=== PATIENT | female | born 1950 | race Caucasian/White ===

== ENCOUNTER 2018-05-31 08:55 | Outpatient (CLI) | payer MEDICARE, BC, SELFPAY ==
--- NOTE | 2018-05-31 08:39 | DI.RAD_ITS ---
SYMPTOM/DIAGNOSIS: EVALUATE LT KEVYN WITH INSTABILITY PELVIS AND LEFT HIP: A left hip prosthesis is noted. There are no prior comparison pelvis films. There is an abdomen film which shows the acetabular component. There is lucency around the screw in the acetabular component extending into the ilium. This appears unchanged when compared with the previous exam. There is no abnormal lucency around the femoral component. There is no fracture or dislocation. A right hip prosthesis is also noted which appears unremarkable.
== END 2018-05-31 09:15 ==
PROVIDERS: PCP Nurse Practitioner Family; Referring Provider Nurse Practitioner Family; Visit Provider Student in an Organized Health Care Education/Training Program
DX: Z96.642 Presence of left artificial hip joint (principal); M25.352 Other instability, left hip; M25.552 Pain in left hip
CPT/HCPCS: 99202; 99213; 73502

== ENCOUNTER 2018-07-06 00:20 | Outpatient (CLI) | payer MEDICARE, BC, SELFPAY ==
--- NOTE | 2018-07-06 14:47 | DI.DEXA_ITS ---
SYMPTOM/DIAGNOSIS: SCREENING FOR OSTEOPOROSIS IN POSTMENOPAUSAL WOMAN,Z78.0 DEXA SCAN: Routine examination. Evaluation of the lateral spine shows no compression deformities. There does appear to be a grade I spondylolisthesis of L 3 on L 4. Evaluation of the spine shows a total T score of -2.1 and a Z score of 0 consistent with osteopenia. The patient has bilateral total hip replacements. IMPRESSION: Osteopenia in the lumbar spine.
--- NOTE | 2018-07-06 15:22 | DI.MAMMO_ITS ---
SYMPTOM/DIAGNOSIS: SCREENING, Z12.31 MAMMOGRAMS: Mammograms were interpreted according to the usual protocol including computer analysis with CAD system, tomosynthesis and C view imaging. Comparison is made with prior examinations. Breast density, Category B. No suspicious masses or microcalcifications are seen. There is an asymmetric density in the outer left breast seen on the craniocaudad view. This area should be further evaluated with a spot compression view. Ultrasound may be indicated at that time. IMPRESSION: Additional views of the left breast as described above. Category 0. MQSA ASSESSMENT OF FINDINGS: Incomplete: Needs additional imaging evaluation. Category 0. Patient will receive a letter notifying them of these results. BI-RADS category B. There are scattered areas of fibroglandular density.
== END 2018-07-06 00:40 ==
PROVIDERS: PCP Nurse Practitioner Family; Visit Provider Nurse Practitioner Family
DX: Z12.31 Encounter for screening mammogram for malignant neoplasm of breast (principal); R92.8 Other abnormal and inconclusive findings on diagnostic imaging of breast; M85.88 Other specified disorders of bone density and structure, other site; Z78.0 Asymptomatic menopausal state
CPT/HCPCS: 77063; 77067; 77080

== ENCOUNTER 2018-08-13 01:05 | Outpatient (CLI) | payer MEDICARE, BC, SELFPAY ==
--- NOTE | 2018-08-13 09:33 | DI.MAMMO_ITS ---
SYMPTOM/DIAGNOSIS: F/U MAMMO, ASYMMETRIC DENSITY LT LEFT BREAST ADDITIONAL VIEW: Additional images are interpreted according to the usual protocol including tomosynthesis and 2D imaging. A CC spot compression view with tomography was performed of the lateral breast for questioned small area of asymmetric density. No suspicious abnormalities are seen. There has been no change from the previous exam. IMPRESSION: Category 1, negative mammogram. Yearly screening mammography is recommended. SA ASSESSMENT OF FINDINGS: Negative. Category 1. Patient will receive a letter notifying them of these results. BI-RADS category B. There are scattered areas of fibroglandular density.
== END 2018-08-13 01:25 ==
PROVIDERS: PCP Nurse Practitioner Family; Visit Provider Nurse Practitioner Family
DX: Z12.31 Encounter for screening mammogram for malignant neoplasm of breast (principal); R92.8 Other abnormal and inconclusive findings on diagnostic imaging of breast; N64.59 Other signs and symptoms in breast
CPT/HCPCS: 77061; 77065; G0279

== ENCOUNTER 2019-04-21 17:09 | Outpatient (REF) | payer MEDICARE, BC, SELFPAY ==
[2019-04-21 21:04] LABS: Absolute Basophil Count 0.04 k/cumm (0.0-0.2); Absolute Eosinophil Count 0.11 k/cumm (0.0-0.7); Absolute Lymphocyte Count 1.52 k/cumm (1.2-3.4); Absolute Monocyte Count 0.42 k/cumm (0.11-0.7); Absolute Neutrophil Count 1.99 k/cumm (1.2-6.7); Eosinophils % 2.7; HCT 40.1 % (36.0-46.0); HGB 13.2 g/dL (12.0-15.5); Lymphocytes % 37.3; Mean Corp. HGB Concentration 32.9 g/dL (32.0-36.0); Mean Corpuscular Hemoglobin 29.9 pg (27.0-33.0); Mean Corpuscular Volume 90.9 fL (80-95); Mean Platelet Volume 11.4 fL (8.0-11.0); Monocytes % 10.3; Neutrophils % 48.7; Platelet Count 277 x1000/uL (130-400); RBC 4.41 m/cumm (4.00-5.20); RBC Distribution Width 12.5 % (11.7-14.6); White Blood Cell Count 4.08 k/cumm (4.4-10.8)
[2019-04-21 21:19] LABS: Hemoglobin A1C 5.8 % (3.8-5.6)
[2019-04-21 21:26] LABS: Anion Gap 7.4 mmol/L (3-11); BUN 14 mg/dL (7-18); CO2 31.6 mmol/L (21.0-32.0); CREATININE 0.92 mg/dL (0.55-1.02); Calcium 9.3 mg/dL (8.5-10.1); Calculated LDL 270 mg/dL; Chloride 101 mmol/L (98-107); Cholesterol 376 mg/dL (<200); Glucose 92 mg/dL (74-106); HDL Cholesterol 83 mg/dL (40-60); Potassium 4.1 mmol/L (3.5-5.1); Sodium 140 mmol/L (136-145); Triglyceride 115 mg/dL (<150)
[2019-04-25 11:29] LABS: Hepatitis C Ab w Rflx HCV PCR Negative (Negative)
== END 2019-04-21 17:29 ==
LOC: NCHCN 17:09
PROVIDERS: PCP Nurse Practitioner Family; Visit Provider Nurse Practitioner Family
DX: E78.5 Hyperlipidemia, unspecified (principal); H02.409 Unspecified ptosis of unspecified eyelid; Z11.59 Encounter for screening for other viral diseases
CPT/HCPCS: 80048; 80061; 86803; 83036; 85025

== ENCOUNTER 2019-05-03 10:05 | Outpatient (REF) | payer MEDICARE, BC, SELFPAY ==
[2019-05-03 15:07] LABS: ALT 21 U/L (14-59); AST 27 U/L (15-37); Albumin 3.8 g/dL (3.4-5.0); Alkaline Phosphatase 58 U/L (46-116); Bilirubin, Total 0.3 mg/dL (0.2-1.0); Total Protein 6.8 g/dL (6.4-8.2)
== END 2019-05-03 10:25 ==
LOC: NCHCN 10:05
PROVIDERS: PCP Nurse Practitioner Family; Visit Provider Nurse Practitioner Family
DX: E78.5 Hyperlipidemia, unspecified (principal)
CPT/HCPCS: 80076

== ENCOUNTER 2019-07-18 09:12 | Outpatient (REF) | payer MEDICARE, BC, SELFPAY ==
[2019-07-18 20:54] LABS: ALT 25 U/L (14-59); AST 23 U/L (15-37); Albumin 3.9 g/dL (3.4-5.0); Alkaline Phosphatase 60 U/L (46-116); Anion Gap 5.7 mmol/L (3-11); BUN 19 mg/dL (7-18); Bilirubin, Total 0.6 mg/dL (0.2-1.0); CO2 32.3 mmol/L (21.0-32.0); CREATININE 0.99 mg/dL (0.55-1.02); Calcium 9.2 mg/dL (8.5-10.1); Calculated LDL 185 mg/dL (<100); Chloride 102 mmol/L (98-107); Cholesterol 277 mg/dL (<200); Estimated GFR 55.45 (mL/min/1.73m2); Glucose 73 mg/dL (74-106); HDL Cholesterol 82 mg/dL (40-60); Potassium 4.1 mmol/L (3.5-5.1); Sodium 140 mmol/L (136-145); Total Protein 7.4 g/dL (6.4-8.2); Triglyceride 54 mg/dL (<150)
== END 2019-07-18 09:32 ==
LOC: NCHCN 09:12
PROVIDERS: PCP Nurse Practitioner Family; Visit Provider Nurse Practitioner Family
DX: E78.5 Hyperlipidemia, unspecified (principal)
CPT/HCPCS: 80053; 80061

== ENCOUNTER 2019-11-18 11:13 | Outpatient (CLI) | payer MEDICARE, BC, SELFPAY ==
--- NOTE | 2019-11-18 11:00 | DI.RAD_ITS ---
EXAM: XR KNEE LT 2V AP,LAT CLINICAL HISTORY: L knee pain s/p TKA. TECHNIQUE: 2D digital imaging was performed. COMPARISON: No exams were available for comparison FINDINGS: BONES: No acute fracture is present. No bony destructive lesion is seen. JOINTS: There are mild degenerative changes of the lateral femoral tibial joint.. No joint effusion is seen. SOFT TISSUE: Normal. IMPRESSION: Mild degenerative changes. DATA REPOSITORY: RADIATION DOSE DELIVERED:
--- NOTE | 2019-11-18 11:00 | DI.RAD_ITS ---
EXAM: XR HIP LT AP LAT ONLY CLINICAL HISTORY: eval L hip pain and instability. TECHNIQUE: 2D digital imaging was performed. COMPARISON: CT ABD PELVIS WITH CONTRAST from 08/08/2014 CT ABD PELVIS WITH CONTRAST from 08/08/2014 CR XR hip LT complete AP pelvis from 05/31/2018 FINDINGS: BONES: No acute fracture is present. There is a left total hip prosthesis. The distal portion of th e femoral component is not included on the exam. A cystic area is again noted adjacent to the acetab ular component of the prosthesis which appears stable. JOINTS: No dislocation present. SOFT TISSUE: Normal. IMPRESSION: Stable appearance of the left hip prosthesis and surrounding bone. DATA REPOSITORY: RADIATION DOSE DELIVERED:
== END 2019-11-18 11:33 ==
PROVIDERS: PCP Nurse Practitioner Family; Referring Provider Nurse Practitioner Family; Visit Provider Student in an Organized Health Care Education/Training Program
DX: Z96.652 Presence of left artificial knee joint (principal); M17.12 Unilateral primary osteoarthritis, left knee; Z96.642 Presence of left artificial hip joint; M25.552 Pain in left hip; M23.92 Unspecified internal derangement of left knee
CPT/HCPCS: 99214; 73502; 73560

== ENCOUNTER 2019-12-07 01:13 | Outpatient (CLI) | payer MEDICARE, BC, SELFPAY ==
--- NOTE | 2019-12-07 07:15 | DI.MRI_ITS ---
EXAM: MR LOWER JOINT LT WO CLINICAL HISTORY: L KNEE PAIN-S/P TKA,Z96.652. TECHNIQUE: Multiplanar multisequence MRI was performed. COMPARISON: CR XR KNEE LT 2V AP,LAT from 11/18/2019 FINDINGS: There is a moderate-sized joint effusion. There is a moderate size popliteal cyst. Anterior cruciat e ligament appears thin but intact. The posterior cruciate ligament, medial collateral ligament and extensor mechanism appears intact. There is mild edema at the insertion of the IT band on the proxim al tibia. The lateral collateral ligament and hamstring tendons as well as popliteal tendon appear i ntact. Medial meniscus shows mild degenerative changes. There is some cartilage thinning and irregu larity over the medial femoral condyle. There is a tear of the lateral meniscus, with the posterior horn displaced or flipped laterally. The anterior horn appears intact. There is cartilage thinning extending down to bone involving the lateral femoral condyle and lateral tibial plateau. There is th inning of the cartilage at of the patellar apex and lateral patellar facet with some high signal in u nderlying bone. IMPRESSION: Large complex tear of the posterior horn and body of the lateral meniscus. DATA REPOSITORY:
== END 2019-12-07 01:33 ==
PROVIDERS: PCP Nurse Practitioner Family; Visit Provider Student in an Organized Health Care Education/Training Program
DX: Z96.652 Presence of left artificial knee joint (principal); S83.272A Complex tear of lateral meniscus, current injury, left knee, initial encounter
CPT/HCPCS: 73721

== ENCOUNTER 2019-12-23 08:09 | Outpatient (CLI) | payer MEDICARE, BC, SELFPAY ==
[2019-12-25 02:51] LABS: COVID-19 RT-PCR Result NEGATIVE (Negative)
== END 2019-12-23 08:29 ==
PROVIDERS: PCP Nurse Practitioner Family; Visit Provider Student in an Organized Health Care Education/Training Program
DX: M23.92 Unspecified internal derangement of left knee (principal)
CPT/HCPCS: U0003

== ENCOUNTER 2019-12-27 06:15 | Day surgery (SDC) | payer MEDICARE, BC, SELFPAY ==
[2019-12-27] VITALS (7 sets, daily range): BP systolic 68–138; BP diastolic 38–66; PULSE 53–60; RESP 12–18; TEMP 36–36.6; O2SAT 96–100
[2019-12-27] MEDS: Lactated Ringers 1,000 ML 80 ML IV (07:11)
--- NOTE | 2019-12-27 07:23 | W.PM.DSUDISC ---
Discharge Plan Disposition Patient Disposition: HOME Condition: Good Discharge Details Reason For Visit: Left Knee Arthroscopy Attending Provider: Mohit Lovell Primary Care Provider: Denise Alanis Home Meds and New Rx's Prescriptions: New hydrocodone-acetaminophen 5-325 mg tablet 1 tab PO Q6H PRN PRN (Reason: pain) Qty: 8 RF: 0 acetaminophen 500 mg tablet 500 mg PO Q6H PRN PRN (Reason: pain) Qty: 60 RF: 3 ibuprofen 600 mg tablet 600 mg PO TID PRNQty: 60 RF: 3 Continued pravastatin 10 mg tablet 10 mg PO DAILY RF: 0 Zyflamed 1 TAB tablet 1 tab PO DAILY RF: 0 ascorbic acid (vitamin C) [Vitamin C] 500 MG tablet 500 mg PO PRN RF: 0 Discharge Instructions Additional Instructions: - Just use ice packs instead of cryocuff. - Tylenol and Ibuprofen for baseline pain and Hydrocodone for breakthrough pain. Stand Alone Forms: [facility] Knee Arthroscopy Referrals: Mohit Lovell MD [ [facility] STAFF PHYSICIAN] - Equipment/Supplies: Partial Weight Bearing Crutches Activity:: Elevate Remove Dressings/Wound Care:: 72 hours Shower/Bathe:: 72 hours Diet:: As Tolerated Discharge Orders Discharge Orders: Discharge Order (Routine); Ordered 12/27/19 Ordered By: Mohit Lovell DS: Diagnosis Discharge Diagnosis (1) Tear of lateral meniscus of left knee: Status: Acute
[2019-12-27] MEDS: Bupivacaine 0.5% Pres-Free 30 ML VIAL (07:40)
[2019-12-27] MEDS: ceFAZolin 2 GM/50 ML BAG IVPB (07:45)
[2019-12-27] MEDS: ePHEDrine 50 MG/ML VIAL IVP (08:18)
[2019-12-27] MEDS: fentaNYL 100 MCG/2 ML VIAL IVP (08:35)
--- NOTE | 2019-12-28 06:24 | W.PM.OP ---
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 This was confirmed based on MRI and exam findings. Nonoperative measures were exhausted but disability and pain persisted. I discussed knee arthroscopy with meniscal intervention with the patient. I reviewed the risks of the procedure to include, but not limited to, bleeding, infection, pain, stiffness, damage to nerves or vessels, recurrence, blood clot. Despite these risks, the patient elected to proceed. Findings: A diagnostic arthroscopy was performed with the following findings: Suprapatellar Pouch: Mild inflammatory changes seen, No loose bodies Medial Compartment: No meniscal tear, Intact meniscal root, a focal area of grade II chondromalacia over the medial femur, No loose bodies Notch: ACL and PCL were intact Lateral Compartment: There is a complex tear of the lateral meniscus with a portion absent and extending into the periphery by the popliteus, Intact meniscal root, grade IV chondromalacia throughout the majority of the lateral tibia and a portion of the lateral femur, No loose bodies Patellofemoral Compartment: Grade I/II chondromalacia, No apparent patellar maltracking Procedure Description: Tracie was greeted in the preoperative holding area where the correct side was identified and marked. The consent was reviewed with the patient and signed. The history and physical was updated. All questions were answered. She was taken back to the operating room. The patient was placed into the supine position on the operating room table. A nonsterile tourniquet was placed high onto the leg but not used. All bony prominences were well padded. Prophylactic antibiotics in the form of Cefazolin were administered. The left leg was then prepped with Chloraprep and draped in a standard fashion with stockinette and extremity drape. A timeout to confirm correct identity, side and site, procedure, allergies, anesthesia, and medical concerns was performed. The leg was placed into a pneumatic leg adamson, SPIDER2. A standard lateral portal was made at the lateral border of the patella tendon in line with the inferior pole of the patella, soft spot. The skin and deep tissue was incised sharply and the blunt trochar was inserted atraumatically. A diagnostic arthroscopy was performed and the findings are listed above. The suprapatellar pouch had mild inflammatory changes. The patellofemoral articulation showed some minimal articular damage as well as good tracking. The lateral gutter had no loose bodies and the medial gutter had no loose bodies. The knee was brought into some valgus stress in extension to open the medial compartment. A medial portal was made, localized by a spinal needle. The portal was created with an #11 blade through skin and capsule under direct visualization avoiding any meniscal injury. A probe was then inserted into the medial compartment. The medial compartment was fully inspected. The chondral surface of the tibia showed no significant chondromalacia and the surface of the femur showed a focal area of grade II chondromalacia. The medial meniscus had no meniscal tear. The notch was then inspected which showed an intact ACL and an intact PCL. The leg was then brought into a figure of 4 position. The lateral compartment was fully inspected with the arthroscope and a probe. The chondral surface of the lateral femur showed some focal areas of grade IV chondromalacia as well as global grade II chondromalacia. The chondral surface of the lateral tibia showed significant chondromalacia throughout with exposed bone. The lateral meniscus had a complex tear extending from the root through the posterior body. There is seem to be a portion which was absent. There is also a portion of the posterior horn which was flipped between the popliteus and the posterior tibia. This was removed and resected. Any torn or loose edge of the meniscus were debrided down using a shaver. The arthroscope was brought back into the suprapatellar pouch and the leg was in full extension. The knee was thoroughly irrigated with the arthroscopic fluid on high flow and pressure. Inflow was stopped and excess fluid was removed. The wounds were closed with 4-0 Nylon. They were dressed with Xeroform, 4x4 gauze, ABD pad, Kerlix and an ILANA wrap. A cryo-cuff was applied. The patient tolerated the procedure well and was returned to the Same Day Surgery area in a stable condition suffering no known complication.
== END 2019-12-27 10:34 | disposition home or self-care (01) ==
PROVIDERS: PCP Nurse Practitioner Family; Visit Provider Student in an Organized Health Care Education/Training Program
PROC: (CPT 29870; principal; 2019-12-27 07:30)
DX: S83.272A Complex tear of lateral meniscus, current injury, left knee, initial encounter (principal); M94.262 Chondromalacia, left knee; X58.XXXA Exposure to other specified factors, initial encounter
CPT/HCPCS: 29881; J0690; J1100; J1885; J2001; J2405; J2704; J3010

== ENCOUNTER 2020-03-21 01:18 | Outpatient (CLI) | payer MEDICARE, BC, SELFPAY ==
--- NOTE | 2020-03-21 | DI.US_ITS ---
EXAM: US SOFT TISS ABD WALL/LOW BACK CLINICAL HISTORY: . TECHNIQUE: Ultrasound was performed using standard protocol. COMPARISON: CT ABD PELVIS WITH CONTRAST from 08/08/2014 FINDINGS: Sonographic assessment utilizing grayscale and color Doppler imaging was performed and targeted to th e area of clinical concern. There is a 1.3 x 0.9 x 1 cm hypoechoic ovoid area 9 cm above the umbilicus which appears to communica te with an anterior abdominal wall defect. The findings are suspicious for an anterior abdominal wal l hernia containing fat. There is no peristalsis of the material to suggest bowel. There is a small fat containing anterior abdominal wall hernia in the midline approximately 7 cm above the umbilicus on the CT examination from 08/08/2014. A CT scan of the abdomen should be considered for re-evaluatio n given the finding sonographically. IMPRESSION: DATA REPOSITORY:
== END 2020-03-21 01:38 ==
PROVIDERS: PCP Nurse Practitioner Family; Visit Provider Nurse Practitioner Family
DX: M79.89 Other specified soft tissue disorders (principal)
CPT/HCPCS: 76705

== ENCOUNTER → 2020-04-13 10:00 | Outpatient (BNVA) | payer MEDICARE, BC, SELFPAY | PROVIDERS: PCP Nurse Practitioner Family; Referring Provider Nurse Practitioner Family; Visit Provider Surgery | DX: K43.0 Incisional hernia with obstruction, without gangrene (principal) | CPT/HCPCS: 99203; 99214 ==

== ENCOUNTER 2020-04-27 01:49 | Outpatient (CLI) | payer MEDICARE, BC, SELFPAY ==
[2020-04-28 11:58] LABS: COVID-19 RT-PCR UVMMC Result Negative (Negative)
== END 2020-04-27 02:09 ==
PROVIDERS: PCP Nurse Practitioner Family; Visit Provider Surgery
DX: Z11.52 Encounter for screening for COVID-19 (principal); Z01.818 Encounter for other preprocedural examination
CPT/HCPCS: U0003

== ENCOUNTER 2020-05-02 08:24 | Day surgery (SDC) | payer MEDICARE, BC, SELFPAY ==
--- NOTE | 2020-05-02 07:13 | ROE_ITS ---
Date of service: 05/02/20 Time of Service: 12:13 Operative Note Operative Note DATE OF PROCEDURE: 05/02/20 PRE-OP DIAGNOSIS: Incisional Ventral Hernia POST-OP DIAGNOSIS: same PROCEDURE: Incisional ventral hernia repair with mesh SURGEON: Katrin Anthony SUPERINTENDENT [employer]ATING PLANT: Christina Luz ANESTHESIA: GETA and local PATHOLOGY: none sent COMPLICATIONS: None Patient was transported to: PACU Patient's condition: stable Implants: Ventralex ST Hernia Patch: [id number] LOT- [id number] 2021-09-24 Indications: Ms. De León is a very healthy 6-year-old female who is quite active and noticed a small bulge above her umbilicus a few years back. It really had not been bothering her until this past fall. She is here today to discuss repair. On exam she has a small incisional hernia at the site of her subxiphoid scar from her laparoscopic cholecystectomy. The hernia contains some fat which cannot be reduced. It is not tender on palpation at this time. No other defects are palpated above the umbilicus or at the umbilicus itself. We discussed incisional hernia repair with mesh. We also discussed Covid testing prior to the procedure as well as quarantine requirements. Risks, benefits and complications have been reviewed. Complications include but are not limited to bleeding, pain, infection, injury to underlying structures like bowel and adverse reaction to the medication. Questions were entertained and answered to their satisfaction and they wished to proceed. No guarantees were given or implied. COVID-19 testing explained to the patient. Reason for test reviewed. Quarantine per state requirements reviewed with patient. Patient understands and agrees to testing. We also discussed possible bilateral rectus block by anesthesia. If the hernia is too high for a rectus block so we will ask. If anesthesia does not feel like they can block this safely then I will inject Exparel at the end of the case to hopefully keep her comfortable so she can just take Tylenol and ibuprofen Procedure Description: After informed consent was obtained the patient was taken to the operating room and placed in a supine position. Monitors and SCDs were applied and a timeout was done. The patient's name, date of , procedure type, procedure site, allergies to medications, preoperative antibiotic, and DVT prophylaxis were all reviewed. Fire risk was assessed. The patient was placed under a deep MAC and a Bilateral rectus block was done by anesthesia. Please see their notes. Next the abdomen was prepped and draped in a sterile surgical fashion. 0.5% Bupivacaine was injected into the dermis over the palpable incisional hernia. An incision was made with a 15 blade. Dissection was done with cautery through the subcutaneous tissues down to the fascia. The hernia defect was identified and measured .5 cm . The fatty tissue was resected and the fascia was opened slightly so I could get my finger under the fascia to sweep for adhesions. The defect now measured 1 cm. A 1.7 inch round mesh was then placed under the fascia and secured in 4 quadrants with 2-0 proline. Once the mesh was secured the tissues were irrigated with some normal saline. No bleeding was identified. The fascia was closed over the mesh with 0 vicryl running suture. The subcutaneous tissue was re-approximated with interrupted 3-0 vicryl. The dermis was re-approximated with a running 4-0 Vicryl. The skin was cleaned and dried and skin affix was applied. The patient was woken up and taken back to recovery in stable condition. There were no immediate complications. Sponge, instrument and needle counts were correct at the end of the case x2.
--- NOTE | 2020-05-02 07:15 | PDOC.DSDIS_ITS ---
Discharge Plan Disposition Patient Disposition: HOME Condition: Good Discharge Details Reason For Visit: Incisional hernia Attending Provider: Katrin Anthony Primary Care Provider: Denise Alanis Home Meds and New Rx's Prescriptions: Continued atorvastatin 10 mg tablet 10 mg PO DAILY RF: 0 Zyflamed 1 TAB tablet 2 tab PO DAILY RF: 0 ascorbic acid (vitamin C) [Vitamin C] 500 MG tablet 500 mg PO PRN RF: 0 multivitamin Tablet 1 tab PO DAILY RF: 0 Brandon-E 400 mg Tablet 400 mg PO DAILY RF: 0 PreserVision AREDS-2 [id number] [id number] Capsule 2 tab PO DAILY RF: 0 ibuprofen 600 mg tablet 600 mg PO TID PRNQty: 60 RF: 3 Discharge Instructions Additional Instructions: Activity at Home after surgery: 1. Make sure you walk outside at least 4 times per day 2. You should be able to climb a flight of stairs 3. No driving while in pain or taking pain medications 4. No strenuous activity or heavy lifting for 4 weeks (open surgery) Diet, Nutrition, & wound healin. Avoid alcohol until after you are recovered from your surgery 2. Make sure to eat plenty of lean protein (meat, fish, eggs, cottage cheese, beans) 3. Eat a variety of fruits and vegetables. Eat plenty of high fiber foods to avoid constipation. 4. Drink plenty of liquids to stay hydrated and avoid constipation Pain Medications: 1. Tylenol 650 mg every 6 hours as needed and Ibuprofen 600 mg every 6 hours as needed. May alternate between the 2 medications every 3 hours 2. If a narcotic has been prescribed take as directed only for breakthrough pain For Constipation: 1. Take Milk of Magnesia or MiraLax as needed for constipation Other: 1. You may shower daily. Do not scrub the incisions 2. Do not soak the incisions for 1 week 3. You may alternate ice and heat as needed for pain and swelling Wound Care: 1. Keep the incisions clean and dry Please call our office if you develop: 1. Fevers >101.5 2. Nausea or Vomiting 3. Worsening pain 4. Redness and thick discharge from the wounds If after hours please call the Hospital at and ask to speak to the on-call surgeon Referrals: Katrin Anthony MD [ [facility] STAFF PHYSICIAN] - 05/18/20 9:00 am Activity:: No lifting >20 lb x 4 weeks Remove Dressings/Wound Care:: Do Not Remove Shower/Bathe:: 24 hours Diet:: As Tolerated Discharge Orders Discharge Orders: Discharge Order (Routine); Ordered 05/02/20 Ordered By: Katrin Anthony
[2020-05-02 08:33] VITALS: BP 130/66; PULSE 55; RESP 14; TEMP 36; O2SAT 98
[2020-05-02] MEDS: Lactated Ringers 1,000 ML 80 ML IV (09:20)
[2020-05-02] MEDS: Acetaminophen 500 MG TAB ×2 (09:43→09:44)
[2020-05-02] MEDS: Celecoxib 200 MG CAP (09:45)
[2020-05-02] MEDS: Bupivacaine 0.25% Pres-Free 30 ML VIAL (11:07)
[2020-05-02] MEDS: ceFAZolin 1 GM/50 ML BAG IVPB (11:25)
[2020-05-02] MEDS: Lidocaine 2% Multi-Dose 50 ML VIAL (11:36)
[2020-05-02 12:09] VITALS: BP 116/55; PULSE 60; RESP 22; TEMP 36; O2SAT 100
[2020-05-02 12:14] VITALS: BP 126/60; PULSE 59; RESP 11; TEMP 36; O2SAT 100
[2020-05-02 12:19] VITALS: BP 130/68; PULSE 58; RESP 15; TEMP 36; O2SAT 100
[2020-05-02 12:35] VITALS: BP 141/64; PULSE 55; RESP 12; TEMP 36; O2SAT 100
[2020-05-02 13:19] VITALS: BP 126/79; PULSE 45; RESP 15; TEMP 35.9; O2SAT 100
== END 2020-05-02 14:09 | disposition home or self-care (01) ==
LOC: SUR 08:25
PROVIDERS: PCP Nurse Practitioner Family; Visit Provider Surgery
PROC: (CPT 49560; principal; 2020-05-02 10:45)
DX: K43.2 Incisional hernia without obstruction or gangrene (principal); G89.18 Other acute postprocedural pain
CPT/HCPCS: 49560; 49568; 76942; C1781; J0131; J0690; J1100; J1885; J2001

== ENCOUNTER → 2020-05-18 09:09 | Outpatient (BNVA) | payer MEDICARE, BC, SELFPAY | PROVIDERS: PCP Nurse Practitioner Family; Referring Provider Nurse Practitioner Family; Visit Provider Surgery | DX: Z48.815 Encounter for surgical aftercare following surgery on the digestive system (principal) ==

== ENCOUNTER → 2020-06-11 09:46 | Outpatient (BNVA) | payer MEDICARE, BC, SELFPAY | PROVIDERS: PCP Nurse Practitioner Family; Referring Provider Nurse Practitioner Family; Visit Provider Nurse Practitioner Adult Health | DX: G56.01 Carpal tunnel syndrome, right upper limb (principal) | CPT/HCPCS: 99203; 99213 ==

== ENCOUNTER → 2020-08-23 13:28 | Outpatient (BNVA) | payer MEDICARE, BC, SELFPAY | PROVIDERS: PCP Nurse Practitioner Family; Referring Provider Nurse Practitioner Family; Visit Provider Student in an Organized Health Care Education/Training Program | DX: T84.84XA Pain due to internal orthopedic prosthetic devices, implants and grafts, initial encounter (principal); Z96.642 Presence of left artificial hip joint | CPT/HCPCS: 99442 ==

== ENCOUNTER 2020-08-24 13:23 | Outpatient (REF) | payer MEDICARE, BC, SELFPAY ==
[2020-08-24 14:03] LABS: Hemoglobin A1C 5.7 % (<5.7)
[2020-08-24 14:06] LABS: ALT 29 U/L (14-59); AST 24 U/L (15-37); Albumin 4.1 g/dL (3.4-5.0); Alkaline Phosphatase 64 U/L (46-116); BUN 18 mg/dL (7-18); Bilirubin, Total 0.5 mg/dL (0.2-1.0); CREATININE 0.9 mg/dL (0.55-1.02); Calculated LDL 138 mg/dL (<100); Chloride 106 mmol/L (98-107); Cholesterol 232 mg/dL (<200); Glucose 61 mg/dL (74-106); HDL Cholesterol 82 mg/dL (40-60); Potassium 4.4 mmol/L (3.5-5.1); Sodium 144 mmol/L (136-145); Total Protein 7.6 g/dL (6.4-8.2); Triglyceride 63 mg/dL (<150)
[2020-08-24 14:26] LABS: Calcium 9.3 mg/dL (8.5-10.1)
== END 2020-08-24 13:24 | disposition home or self-care (01) ==
LOC: NCHCN 13:23
PROVIDERS: PCP Nurse Practitioner Family; Visit Provider Nurse Practitioner Family
DX: R73.03 Prediabetes (principal); E78.5 Hyperlipidemia, unspecified; M85.88 Other specified disorders of bone density and structure, other site; Z87.891 Personal history of nicotine dependence
CPT/HCPCS: 80053; 80061; 83036

== ENCOUNTER 2020-09-05 01:20 | Outpatient (CLI) | payer MEDICARE, BC, SELFPAY ==
--- NOTE | 2020-09-05 07:00 | DI.NM_ITS ---
Exam(s) NM BONE SCAN 3 PHASE EXAM: NM BONE SCAN 3 PHASE CLINICAL HISTORY: PAINFUL L HIP, S/P THR. TECHNIQUE: Injected Dose: 24 mCi Tc-99m MDP COMPARISON: CR XR HIP LT AP LAT ONLY from 11/18/[address] LOWER EXTREMITY LT WO from 09/05/2020 FINDINGS: Perfusion: Symmetric. Blood Pool: Symmetric. Delayed: No focal area of intense suspicious uptake is seen. Photopenic areas are seen in the hips bi laterally consistent with the patient's known bilateral total hip replacements. There is normal acti vity seen in the kidneys and urinary bladder. Increased uptake is seen in the shoulders bilaterally likely reflecting degenerative changes. There is also a focus of increased radiotracer uptake at the 1st MTP joint of the right foot. There is less prominent but slightly increased radiotracer uptake in the left 1st MTP joint. These likely reflect degenerative changes. IMPRESSION: 1. No abnormal uptake seen in the region of the left hip prosthesis to suggest infection or loosening . DATA REPOSITORY:
--- NOTE | 2020-09-05 08:16 | DI.CT_ITS ---
Exam(s) CT LOWER EXTREMITY LT WO EXAM: CT LOWER EXTREMITY LT WO CLINICAL HISTORY: PAINFUL L HIP, S/P THR. TECHNIQUE: Imaging Protocol: Axial computed tomography images with coronal and sagittal reformatted images were created and reviewed. COMPARISON: CR XR HIP LT AP LAT ONLY from 11/18/2019 FINDINGS: Bones: The osseous structures and articular surfaces are intact. Bony alignment is satisfactory. N o cellulitic or osteomyelitic changes are identified. The patient has a left total hip replacement. This causes artifact. The distal aspects of the 2 screws project into the soft tissues lateral to t he left acetabulum. No lucencies are seen in or around the orthopedic hardware. No lytic or sclerot ic lesions are identified. Soft Tissues: Normal. IMPRESSION: 1. Status post left total hip replacement. 2. There are 2 screws associated with the acetabular component of the prosthesis. The distal aspects of the screws are not within bone and project into the soft tissues lateral to the acetabulum. 3. No acute fracture or dislocation. RADIATION DOSE DELIVERED: 275.82mGy.cm Total DLP 275.82mGy.cm Total DLP DATA REPOSITORY: All CT scans at this facility are submitted to the National Radiology Data Registry (NRDR) Dose Index Registry (DIR) with the [employer] ([employer]). RADIATION OPTIMIZATION: All CT scans at this facility use at least one of these dose optimization te chniques: automated exposure control; mA and/or kV adjustment per patient size (includes targeted exa ms where dose is matched to clinical indication); or iterative reconstruction.
== END 2020-09-05 01:40 ==
PROVIDERS: PCP Nurse Practitioner Family; Visit Provider Student in an Organized Health Care Education/Training Program
DX: T84.84XA Pain due to internal orthopedic prosthetic devices, implants and grafts, initial encounter (principal); Z96.642 Presence of left artificial hip joint
CPT/HCPCS: 73700; 78315

== ENCOUNTER → 2020-10-04 13:01 | Outpatient (BNVA) | payer MEDICARE, BC, SELFPAY | PROVIDERS: PCP Nurse Practitioner Family; Referring Provider Nurse Practitioner Family; Visit Provider Physician Assistant Surgical | DX: Z01.818 Encounter for other preprocedural examination (principal); T84.84XA Pain due to internal orthopedic prosthetic devices, implants and grafts, initial encounter; Z96.642 Presence of left artificial hip joint ==

== ENCOUNTER 2020-10-08 03:00 | Outpatient (CLI) | payer MEDICARE, BC, SELFPAY ==
[2020-10-08 12:26] LABS: Source Nasal/Nares
[2020-10-08 16:02] LABS: COVID-19 PCR Negative (Negative)
== END 2020-10-08 03:01 | disposition home or self-care (01) ==
PROVIDERS: PCP Nurse Practitioner Family; Visit Provider Student in an Organized Health Care Education/Training Program
DX: Z20.822 Contact with and (suspected) exposure to COVID-19 (principal); Z01.818 Encounter for other preprocedural examination
CPT/HCPCS: 87635

== ENCOUNTER 2020-10-08 03:23 | Outpatient (CLI) | payer MEDICARE, BC, SELFPAY ==
[2020-10-08 10:18] LABS: HCT 38.2 % (36.0-46.0); HGB 12.4 g/dL (11.2-15.7); MCH 29.7 pg (27.0-33.0); MCHC 32.5 % (32.0-36.0); MCV 91.6 fL (80-95); MPV 9.4 fL (8.0-11.0); Platelet Count 241 10^3/uL (130-400); RBC 4.17 10^6/uL (3.93-5.22); RDW 12.4 % (11.7-14.6); RDW-SD 41.1 fL; WBC 4.79 10^3/uL (4.4-10.8)
[2020-10-08 12:10] LABS: Anion Gap 9.4 mmol/L (3-11); BUN 18 mg/dL (7-18); CO2 31.6 mmol/L (21.0-32.0); Calcium 9.3 mg/dL (8.5-10.1); Chloride 100 mmol/L (98-107); Estimated GFR 54.66 (mL/min/1.73m2); Glucose 77 mg/dL (74-106); Potassium 4.4 mmol/L (3.5-5.1); Sodium 141 mmol/L (136-145)
== END 2020-10-08 03:24 | disposition home or self-care (01) ==
LOC: LBO 03:24
PROVIDERS: PCP Nurse Practitioner Family; Visit Provider Student in an Organized Health Care Education/Training Program
DX: T84.84XA Pain due to internal orthopedic prosthetic devices, implants and grafts, initial encounter (principal); Z96.642 Presence of left artificial hip joint; Z01.818 Encounter for other preprocedural examination; Z01.812 Encounter for preprocedural laboratory examination
CPT/HCPCS: 36415; 80048; 85027; 87635

== ENCOUNTER 2020-10-09 07:47 | Day surgery (SDC) | payer MEDICARE, BC, SELFPAY ==
[2020-10-09] VITALS (8 sets, daily range): BP systolic 107–127; BP diastolic 65–79; PULSE 54–62; RESP 12–19; TEMP 36.1–36.4; O2SAT 95–99; BMI 20.1
--- NOTE | 2020-10-09 06:49 | ANES.PREOP_ITS ---
General Info Date of Service Date Performed: 10/09/20 Height: 5 ft 5.5 in Weight: 55.792 kg Body Mass Index (BMI): 20.1 Surgical Procedure: Operation Date: 10/09/20 09:55 Proposed Procedures Side Surgeon p lt hip head/liner exchange Left Mohit Lovell MD Meds Allergies and Home Medications Allergies Allergy/AdvReac Type Severity Reaction Status Date / Time No Known Allergies Allergy Unverified 10/05/20 14:12 Home Medication Medication Instructions Recorded Zyflamed 2 tab PO DAILY 07/15/13 ascorbic acid (vitamin C) [Vitamin 500 mg PO PRN 07/15/13 C] atorvastatin 10 mg tablet 10 mg PO DAILY 02/22/20 multivitamin 1 tab PO DAILY 04/30/20 PreserVision AREDS-2 2 tab PO DAILY 05/02/20 Brandon-E 400 mg PO DAILY 05/02/20 acetaminophen [Tylenol Extra 500 mg PO Q6H PRN #90 tab 10/09/20 Strength] aspirin 81 mg PO BID #60 tab 10/09/20 celecoxib [Celebrex] 200 mg PO BID #60 cap 10/09/20 oxycodone 5 mg PO Q4H PRN #18 tab 10/09/20 pantoprazole [Protonix] 40 mg PO DAILY #30 tab 10/09/20 Current Visit Medications: Current Medications Generic Name Dose Route Start Last Admin Trade Name Freq PRN Reason Stop Dose Admin Acetaminophen 1,000 mg 10/09/20 06:00 Acetaminophen 500 Mg Tab PO 10/09/20 16:00 PREOP FRAN Celecoxib 400 mg 10/09/20 06:00 Celecoxib 200 Mg Cap PO 10/09/20 16:00 PREOP FRAN Tranexamic Acid 1,000 mg/ 60 mls @ 360 mls/hr 10/09/20 06:00 Sodium Chloride IV 10/09/20 16:00 PREOP FRAN Ringer's Solution 1,000 mls @ 80 mls/hr 10/09/20 06:00 IV 11/07/20 23:59 INFUSION FRAN Cefazolin Sodium/Dextrose 2 gm in 50 mls @ 100 mls/hr 10/09/20 06:00 Ancef Duplex IVPB 10/09/20 16:00 PREOP FRAN IV Miscellaneous Supplies 1 each 10/09/20 06:00 Iv Access IV 11/07/20 23:59 DIRECTED FRAN Sodium Chloride 0 ml 10/09/20 06:00 Normal Saline Flush 10 Ml Syr IV 11/07/20 23:59 PRN PRN Sodium Chloride 0 ml 10/09/20 06:00 Normal Saline 10 Ml Vial IJ 11/07/20 23:59 DIRECTED PRN Sterile Water 0 ml 10/09/20 06:00 Water,Injection,Sterile 10 Ml Vial IJ 11/07/20 23:59 DIRECTED PRN PFSH Active Problems Active Problems: Problem Status Onset Code Pain in hip region after hip replacement M25.559, Z96.649 Pain due to left hip joint prosthesis T84.84XA, Z96.642 Right carpal tunnel syndrome G56.01 Tear of lateral meniscus of left knee S83.282A Hyperlipidemia E78.5 Medical History Medical History Anxiety with depression pt. denies this Arthritis Former smoker Headache Hernia History of prediabetes Hyperlipidemia Left hip pain Osteopenia Overflow incontinence pt. denies this Pain in right hand Paresthesia of both hands Prediabetes Ptosis Rash Retinal hemorrhage Right carpal tunnel syndrome Small bowel obstruction (08/08/14) pt. denies this Soft tissue mass Tinnitus Ventral hernia Surgical History Surgical History H/O tooth extraction History of cholecystectomy History of left hip replacement History of total replacement of right hip History of umbilical hernia repair Hx of colonoscopy S/P lateral meniscus repair of left knee Status post left hip replacement DOS: 06/29/2000 Dr. Heck at [facility] [place] Tear of lateral meniscus of left knee Status post left knee arthroscopy with partial lateral meniscectomy: 12/27/2019 Tobacco Smoking/Tobacco Use Status: Former Tobacco Use Alcohol Alcohol Intake: never Substance Use Substance use: Never Substance use type: does not use Details: per pt intermittently smoked over years with periods of 4 - 10 years of not smoking. Has not smoked since 03/30/2019 Vital Signs and Lab Results Vital Signs Most Recent Vital Signs in EMR: Temp Pulse Resp BP Pulse Ox 36.4 C L 54 L 16 122/65 97 10/09/20 07:56 10/09/20 07:56 10/09/20 07:56 10/09/20 07:56 10/09/20 07:56 Lab Results Blood Type / Crossmatch: No Data to Display Complete Blood Count: White Blood Count 4.79 10^3/uL (4.4-10.8) 10/08/20 10:08 10/08/20 Red Blood Count 4.17 10^6/uL (3.93-5.22) 10/08/20 10:08 10/08/20 Hemoglobin 12.4 g/dL (11.2-15.7) 10/08/20 10:08 10/08/20 Hematocrit 38.2 % (36.0-46.0) 10/08/20 10:08 10/08/20 Platelet Count 241 10^3/uL (130-400) 10/08/20 10:08 10/08/20 Complete Metabolic Panel: Sodium Level 141 mmol/L (136-145) 10/08/20 10:08 10/08/20 Potassium Level 4.4 mmol/L (3.5-5.1) 10/08/20 10:08 10/08/20 Chloride Level 100 mmol/L (98-107) 10/08/20 10:08 10/08/20 Carbon Dioxide Level 31.6 mmol/L (21.0-32.0) 10/08/20 10:08 10/08/20 Blood Urea Nitrogen 18 mg/dL (7-18) 10/08/20 10:08 10/08/20 Creatinine 1.0 mg/dL (0.55-1.02) 10/08/20 10:08 10/08/20 Estimated GFR/1.73 m2 54.66 (mL/min/1.73m2) 10/08/20 10:08 10/08/20 Calcium Level 9.3 mg/dL (8.5-10.1) 10/08/20 10:08 10/08/20 Glucose Level 77 mg/dL (74-106) 10/08/20 10:08 10/08/20 Liver Function Panel: No Data to Display Coagulation Panel: No Data to Display Cardiac Panel: No Data to Display Arterial Blood Gas: No Data to Display Venous Blood Gas: No Data to Display Pancreas Panel: No Data to Display Thyroid Panel: No Data to Display Infectious Disease: Coronavirus (COVID-19)(PCR) Negative (Negative) 10/08/20 10:20 10/08/20 Coronavirus 2019 Source Nasal/Nares 10/08/20 10:20 10/08/20 Blood Cultures: No Data to Display Toxicology Panel: No Data to Display Anesthesia Assessment and Plan Anesthesia History Personal History: No History of Anesthesia Complications Family History: No Family History of Anesthesia Complications Exercise Tolerance Exercise Tolerance: Metabolic Equivalents>4 Cardiac & Pulmonary Exam Cardiac Exam: Normal S1/S2 Heart Sounds Pulmonary Exam: Clear Bilateral Breath Sounds Airway Exam Known Difficult Airway: No Mallampati Class: 1 Mouth Opening: Normal (> 3cm) Thyromental Distance: Greater than 3 cm Neck Range of Motion: Full ROM Neck Circumference: Normal Teeth Condition: Normal Dentition ASA Classification ASA Score: ASA 2 Emergency Case?: No NPO Status NPO Status: NPO Clears >2 hours, Solids >8 hours Anesthesia Plan Resuscitation Status: Full Code Anesthesia Technique: Spinal Anesthesia Airway Planned: Natural Airway Monitors Used: Standard Monitors Preoperative Comments:: 70 yo for left hip revision s/p left hip arthroplasty 2000. Previous LMA 4 supreme (3 failed to seat), easy mask. discussed with [place] - chloro spinal ok.
--- NOTE | 2020-10-09 07:31 | PDOC.DSDIS_ITS ---
Documented by User: MARVA León 10/09/20 07:34 Discharge Plan Disposition Patient Disposition: HOME Condition: Stable Discharge Details Reason For Visit: Left KEVYN Revision Attending Provider: Mohit Lovell Primary Care Provider: Denise Alanis Home Meds and New Rx's Prescriptions: Continued atorvastatin 10 mg tablet 10 mg PO DAILY RF: 0 Zyflamed 1 TAB tablet 2 tab PO DAILY RF: 0 ascorbic acid (vitamin C) [Vitamin C] 500 MG tablet 500 mg PO PRN RF: 0 multivitamin Tablet 1 tab PO DAILY RF: 0 Brandon-E 400 mg Tablet 400 mg PO DAILY RF: 0 PreserVision AREDS-2 [id number] er-yomc-uk-mg Capsule 2 tab PO DAILY RF: 0 Discontinued ibuprofen 600 mg tablet 600 mg PO TID PRNQty: 60 RF: 3 No Action acetaminophen [Tylenol Extra Strength] 500 mg tablet 500 mg PO Q6H PRN (Reason: pain) Qty: 90 RF: 0 aspirin 81 mg tablet,delayed release (DR/EC) 81 mg PO BID Qty: 60 RF: 0 celecoxib [Celebrex] 200 mg capsule 200 mg PO BID Qty: 60 RF: 0 oxycodone 5 mg tablet 5 mg PO Q4H MDD 30mg PRN (Reason: pain) Qty: 18 RF: 0 pantoprazole [Protonix] 40 mg tablet,delayed release (DR/EC) 40 mg PO DAILY Qty: 30 RF: 0 Discharge Instructions Additional Instructions: Total Hip Discharge Instructions Activity: The most important activity is to walk. You should try to take short walks a few times a day. You have no restrictions on movement or positioning, but do not try to force what you do. You will find some stiffness and weakness with hip flexion (lifting your knee). Do not try to strengthen this too early, continue to practice walking and stairs and this will come. - Outpatient physical therapy can be helpful to help return you to a normal gait and improve your flexibility and strength. This can start around 2 weeks. For some patients, it?s not necessary. Usually this is determined at the time of discharge or at the first post-operative visit. - You should wear the MIK hose on both legs for 2 weeks. Dressing: Keep the surgical dressing in place for at least one week. After the first week it may be removed and replace with light gauze and tape or nothing. It may get wet after 3 days but avoid soaking the dressing. If it gets wet, just lightly pat dry. It is important to always keep some gauze between skin folds, especially when you are sitting. Spend some time with the wound exposed when you are lying flat as the incision does wrinkle onto itself. Medications: - You should take Tylenol and an anti-inflammatory Celebrex as your primary pain control medications. If the Celebrex is too expensive or not covered, please call the office for another alternative (Advil/Ibuprofen or Naproxen/Aleve). - You have been prescribed a stronger pain medication Oxycodone for breakthrough pain, take as needed as prescribed. - You have also been prescribed a stomach acid reduction agent Pantoprozole to help reduce stomach acid and reflux. - You will be taking Aspirin 81mg twice a day for DVT prevention unless instructed otherwise. - If you have constipation you should take Colace or Miralax (both [id number]). It takes most people 3-4 days to have a bowel movement. Follow-up: 2 weeks If you have any acute concerns or questions, please do not hesitate to contact the office at [phone]. You may contact Dr. Lovell with any questions after hours through the hospital at [phone] or on his cell phone at [phone]. Stand Alone Forms: Anesthesia Discharge Inst. Referrals: Mohit Lovell MD [ [facility] STAFF PHYSICIAN] - Equipment/Supplies: Walker Activity:: Activity as Tolerated Remove Dressings/Wound Care:: Do Not Remove Shower/Bathe:: 72 hours Diet:: As Tolerated Discharge Orders Discharge Orders: Discharge Order (Routine); Ordered 10/09/20 Ordered By: Nelsy Strickland DS: Diagnosis Discharge Diagnosis (1) Pain due to left hip joint prosthesis: Status: Acute Documented by User: Mohit Lovell MD 10/09/20 15:17 Discharge Plan Disposition Patient Disposition: HOME Condition: Stable Discharge Details Reason For Visit: Left KEVYN Revision Attending Provider: Mohit Lovell Primary Care Provider: Denise Alanis Home Meds and New Rx's Prescriptions: Continued atorvastatin 10 mg tablet 10 mg PO DAILY RF: 0 Zyflamed 1 TAB tablet 2 tab PO DAILY RF: 0 ascorbic acid (vitamin C) [Vitamin C] 500 MG tablet 500 mg PO PRN RF: 0 multivitamin Tablet 1 tab PO DAILY RF: 0 Brandon-E 400 mg Tablet 400 mg PO DAILY RF: 0 PreserVision AREDS-2 [id number] ov-ldsp-jw-mg Capsule 2 tab PO DAILY RF: 0 Discontinued ibuprofen 600 mg tablet 600 mg PO TID PRNQty: 60 RF: 3 No Action acetaminophen [Tylenol Extra Strength] 500 mg tablet 500 mg PO Q6H PRN (Reason: pain) Qty: 90 RF: 0 aspirin 81 mg tablet,delayed release (DR/EC) 81 mg PO BID Qty: 60 RF: 0 celecoxib [Celebrex] 200 mg capsule 200 mg PO BID Qty: 60 RF: 0 oxycodone 5 mg tablet 5 mg PO Q4H MDD 30mg PRN (Reason: pain) Qty: 18 RF: 0 pantoprazole [Protonix] 40 mg tablet,delayed release (DR/EC) 40 mg PO DAILY Qty: 30 RF: 0 Discharge Instructions Additional Instructions: Total Hip Discharge Instructions Activity: The most important activity is to walk. You should try to take short walks a few times a day. You have no restrictions on movement or positioning, but do not try to force what you do. You will find some stiffness and weakness with hip flexion (lifting your knee). Do not try to strengthen this too early, continue to practice walking and stairs and this will come. - Outpatient physical therapy can be helpful to help return you to a normal gait and improve your flexibility and strength. This can start around 2 weeks. For some patients, it?s not necessary. Usually this is determined at the time of discharge or at the first post-operative visit. - You should wear the MIK hose on both legs for 2 weeks. Dressing: Keep the surgical dressing in place for at least one week. After the first week it may be removed and replace with light gauze and tape or nothing. It may get wet after 3 days but avoid soaking the dressing. If it gets wet, just lightly pat dry. It is important to always keep some gauze between skin folds, especially when you are sitting. Spend some time with the wound exposed when you are lying flat as the incision does wrinkle onto itself. Medications: - You should take Tylenol and an anti-inflammatory Celebrex as your primary pain control medications. If the Celebrex is too expensive or not covered, please call the office for another alternative (Advil/Ibuprofen or Naproxen/Aleve). - You have been prescribed a stronger pain medication Oxycodone for breakthrough pain, take as needed as prescribed. - You have also been prescribed a stomach acid reduction agent Pantoprozole to help reduce stomach acid and reflux. - You will be taking Aspirin 81mg twice a day for DVT prevention unless instructed otherwise. - If you have constipation you should take Colace or Miralax (both [id number]). It takes most people 3-4 days to have a bowel movement. Follow-up: 2 weeks If you have any acute concerns or questions, please do not hesitate to contact the office at [phone]. You may contact Dr. Lovell with any questions after hours through the hospital at [phone] or on his cell phone at [phone]. Stand Alone Forms: Anesthesia Discharge Inst. Referrals: Mohit Lovell MD [ [facility] STAFF PHYSICIAN] - Equipment/Supplies: Walker Activity:: Activity as Tolerated Remove Dressings/Wound Care:: Do Not Remove Shower/Bathe:: 72 hours Diet:: As Tolerated Discharge Orders Discharge Orders: Discharge Order (Routine); Ordered 10/09/20 Ordered By: Nelsy Strickland
[2020-10-09] MEDS: Acetaminophen 500 MG TAB 1000 MG PO (08:43)
[2020-10-09] MEDS: Lactated Ringers 1,000 ML 80 ML IV (08:43)
[2020-10-09] MEDS: Celecoxib 200 MG CAP 400 MG PO (08:44)
[2020-10-09] MEDS: ceFAZolin 2 GM/50 ML BAG IVPB (09:50)
[2020-10-09] MEDS: Tranexamic Acid 1,000 MG/10 ML VIAL 1000 MG (10:04)
[2020-10-09] MEDS: Normal Saline 20 ML VIAL (10:21)
[2020-10-09] MEDS: Bupivacaine 0.25% Pres-Free 30 ML VIAL (10:21)
[2020-10-09] MEDS: Ketorolac 30 MG/ML VIAL (10:21)
--- NOTE | 2020-10-09 11:50 | DI.RAD_ITS ---
Exam(s) XR HIP LT IN OR EXAM: XR HIP LT IN OR CLINICAL HISTORY: PAINFUL LEFT HIP PROSTHESIS. TECHNIQUE: 2D digital imaging was performed. COMPARISON: No exams were available for comparison FINDINGS: Fluoroscopy provided intraoperatively. Radiologist not present. No images supplied. Total fluoroscopy time 50.8 seconds Cumulative dose 4.7mGy IMPRESSION: DATA REPOSITORY: RADIATION DOSE DELIVERED:
[2020-10-09] MEDS: HYDROmorphone 2 MG/ML VIAL IVP (12:15)
[2020-10-09] MEDS: Normal Saline Flush 10 ML SYR IV (12:20)
--- NOTE | 2020-10-09 12:48 | W.ANESPOSTOP ---
Postoperative Evaluation Date, Time and Location Date Performed: 10/09/20 Time Performed: 12:49 Patient Location: PACU Vital Signs Most Recent Imported Vital Signs: Most Recent Vital Signs Temp Pulse Resp BP Pulse Ox 36.2 C L 60 19 127/67 98 10/09/20 12:45 10/09/20 12:45 10/09/20 12:45 10/09/20 12:45 10/09/20 12:45 Pain Score Most Recent Pain Score: Most Recent Pain Score Pain Level 5 10/09/20 12:45 Assessment Mental Status: Awake (Alert & Oriented to Patient Baseline) Airway and Respiratory Function: Patent airway with normal (patient baseline) respiratory exam Cardiovascular Function: Hemodynamically Stable Hydration Status: Adequately Hydrated Nausea & Vomiting: No Nausea or Vomiting Pain: Pain is tolerable per patient Peripheral Nerve Block: Patient did not receive a nerve block
[2020-10-09] MEDS: oxyCODONE 5 MG TAB PO (13:14)
--- NOTE | 2020-10-09 14:30 | IN_ITS ---
Date of service: 10/09/20 Time of Service: 14:30 PT Notes Visit Reasons: Left KEVYN Revision Physical Therapy Day Surgery Initial Evaluation Date: 10/09/2020 Referring Doctor: MARVA León PT Orders: PT CONSULT: S/P Ortho Surgery Precautions: WBAT on L LE with AD. Patient Profile/Admitting Diagnosis: Tracie is a 70-year-old female status post left total hip arthroplasty revision on postoperative day 0. PMHX: Medical History Anxiety with depression Arthritis Former smoker Headache Hernia History of prediabetes Hyperlipidemia Left hip pain Osteopenia Overflow incontinence pt. denies this Pain in right hand Paresthesia of both hands Prediabetes Ptosis Rash Retinal hemorrhage Right carpal tunnel syndrome Small bowel obstruction (08/08/14) pt. denies this Soft tissue mass Tinnitus Ventral hernia Surgical History H/O tooth extraction History of cholecystectomy History of left hip replacement History of total replacement of right hip History of umbilical hernia repair Hx of colonoscopy S/P lateral meniscus repair of left knee Status post left hip replacement DOS: 06/29/[address] [facility] [place] Tear of lateral meniscus of left knee Status post left knee arthroscopy with partial lateral meniscectomy: 12/27/2019 Social History/Home Situation: Lives at home on the first floor private home with 2 steps to enter without rails. Daughter and granddaughter who have been very good support, live on the second floor of the same house. Equipment Owned/DME: PHI, walking stick Subjective: Reports mild dizziness upon sitting up. Reports ache in the L hip at start of walking but felt a lot better eventually through the walk. Denies numbness, chest pain, and headache throughout session. Objective: General Observation: Mepilex Ag over surgical incision. TDS to B legs. IV access in left UE. Mental Status: Alert and oriented x4 1?2/10 in left hip Pain: ROM: Right Upper Extremity: Shoulder Flexion WFL. Shoulder abduction WFL. Elbow flexion WFL. Wrist flexion WFL. Functional opening and closing of hand WFL. Left Upper Extremity: Shoulder Flexion WFL. Shoulder abduction WFL. Elbow flexion WFL. Wrist flexion WFL. Functional opening and closing of hand WFL. Right Lower Extremity: Hip flexion WFL. Hip abduction WFL. Knee flexion WFL. Ankle dorsiflexion WFL. Ankle plantarflexion WFL. Left Lower Extremity: Hip flexion WFL. Hip abduction WFL. Knee flexion WFL. Ankle dorsiflexion WFL. Ankle plantarflexion WFL. Strength: Right Upper Extremity: Shoulder flexors 5/5. Shoulder abductors 5/5. Elbow flexors 5/5. Elbow extensors 5/5. Post Secondary Professional strong. Left Upper Extremity: Shoulder flexors 5/5. Shoulder abductors 5/5. Elbow flexors 5/5. Elbow extensors 5/5. Post Secondary Professional strong. Right Lower Extremity: Hip flexors 4/5. Hip abductors 4/5. Knee flexors 5/5. Knee extensors 4/5. Ankle dorsiflexors 5/5. Ankle plantarflexors 5/5. Left Lower Extremity:Hip flexors 4/5. Hip abductors 4/5. Knee flexors 5/5. Knee extensors 4/5. Ankle dorsiflexors 5/5. Ankle plantarflexors 5/5. Sensation: Intact rest pain and light pressure in bilateral lower extremities Bed Mobility/Transfers: Supine to sit standby assist Sit to stand contact-guard assist Stand to sit standby assist Bed to chair standby assist Gait: Tolerated level surface ambulation of 150 feet using front with decreased geena mild ache in the left hip that subsided later in the activity. Stairs: Completed up-and-down 6 x 4 inch steps 4 x 6 inch steps while using bilateral axillary crutches with standby at requiring minimal verbal cueing for correct technique. Balance: Static Sitting: Normal Dynamic Sitting: Normal Static Standing: Fair Dynamic Standing: Fair Special Tests: Mobility Limitations Standardized Measure [facility] AM-PAC 6 clicks Basic Mobility Inpatient Short Form: Raw Score: 22 CMS Score: 21% deficit Informed Consent/Education: Patient instructed in purpose of PT consult. Packet containing left KEVYN exercise protocol has been given to patient. Education and training on initial set of exercises that can be done at home have been completed with patient. Assessment: Comfortable with going home today using front wheeled walker has main means of ambulation inside home. Will have support of daughter and granddaughter as she recovers. Good range of active range of motion available postoperatively. Good strength in bilateral hips and knees. No LOB during mobility assessment. Has good understanding of HEP, written copy with demonstration provided. Patient presents with clinical signs and symptoms consistent with current/admitting diagnoses that have resulted to mobility limitations, gait instability, generalized weakness, and impairment of motor control as demonstrated by the following impairment level findings: 1. Decreased strength to left hip major muscle groups 2. Impaired standing balance Impairments are contributing to the following functional limitations: 1. Inability to safely ambulate without assistive device 2. Increased [id number] moderate completion time for mobility ADL performance 3. Increased fall risk Patient is assessed as a complexity based on the following: History: 70-year-old female with impairment level findings, functional limitations, and past medical history as indicated above Examination: Demonstrable impairment in strength, balance, and mobility level with underlying impairments and functional limitations as documented above Presentation: Stable Decision Makin moderate complexity Goals: N/A. PT evaluation and 1-2 treatment sessions only for functional mobility training using recommended AD and for HEP instruction. Plan of Care/Treatment Plan: N/A. PT evaluation and 1-2 treatment session only for functional mobility training using recommended AD and for HEP instruction. DISCHARGE RECOMMENDATIONS: Home when medically cleared by orthopedic surgeon. Will benefit from the use of walker to maximize independence and reduce fall risk at home. Outpatient physical therapy services to facilitate return to independent ambulation in the community without assistive device. TREATMENT CODE/TIME: 50891 x 20 minutes, 28256 x 27 minutes beginning at 14:30 PM. Thank you for the opportunity to participate in the care of this patient. Jeanne Butler PT, DPT, CLT [facility] [place], [place]
--- NOTE | 2020-10-09 15:17 | W.PM.OP ---
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 Depuy Cornelius Acetabular Component, 54mm 2. Pinancle Metal Acetabular Liner, 54x47 3. Bi Mentum Liner, 47x28 4. Depuy Altrx Ceramic Femoral Head, Size 28+3mm Indications: I have seen Tracie in clinic for symptoms of a painful hip replacement. This was determined likely to be most from polyethylene wear as well as some inherent instability of the prosthesis. CT scan showed no significant bony abnormalities except for some decreased density behind the cup and a bone scan showed that the components are well-placed. Tracie has exhausted nonoperative methods and was having significant limitations in daily function and desired better function and less pain. My initial intentions were to offer a head and liner exchange. However, the components of her hip replacement were no longer supported and thus I recommended we proceed with an acetabular revision with a dual mobility system. I explained the risks of the procedure to include, but not limited to, bleeding, infection, pain, stiffness, fracture, damage to nerves and vessels, damage to muscles and tendons, loosening, instability, leg length inequality, need for repeat procedure, blood clot and cardiopulmonary demise. Despite these risks, Tracie elected to proceed. Findings: There is significant synovitis seen throughout the hip. The acetabular liner was actually loose within the acetabular component. There is also edge loading seen of the acetabular liner at the posterior lip. The acetabular component was removed. A small piece of the posterior?inferior wall broke off with the acetabular component. A 54 mm Cornelius acetabular component was placed with a dual mobility system. Procedure Description: Tracie was greeted in the preoperative holding area where the correct side was identified and marked. The consent was reviewed with the patient and signed. The history and physical was updated. All questions were answered. She was taken back to the operating room. A spinal anesthestic was then administered. The feet were wrapped with cast padding and Coban and then placed into the boot liners and then into the boots. Care was taken to protect the skin and make sure the heels were fully down and the boots were stable. The patient was then positioned onto the HANA table. Both legs were held in a neutral position. SCDs were applied. The patient was then slid down onto a peroneal post. Prophylactic antibiotics in the form of cefazolin were administered. 1g of Tranxemic Acid was given intravenously within 30 minutes of incision. The left leg was then prepped with Chloraprep and draped in a standard fashion. A second prep with Chloraprep was performed prior to placement of a shower-curtain type drape with Iodine impregnated skin protection. A timeout to confirm correct identity, side and site, procedure, allergies, anesthesia, and medical concerns was performed. An obliquely oriented incision was made starting lateral to the ASIS and running distal over the Tensor Fascia Kathy (TFL) muscle belly toward the fibular head, approximately 10cm. The skin and soft tissue was dissected sharply, through Irasema?s fascia, and to the fascia of the TFL. With the fascia and superior border of the IT band identified, the fascia was incised with a new knife just above any perforators from the IT band. The TFL muscle belly was bluntly dissected away from the fascia and moved laterally. The fat between TFL and rectus was identified to ensure the dissection was not within the TFL. Blunt dissection created space between abductors and the capsule and retractor was placed over the lateral femoral neck. The fibers of the rectus femoris tendon were identified and these were freed from the anterior capsule. A second cobra retractor was placed around the medial femoral neck. The TFL was further retracted laterally to show the deep fascia. Careful dissection through this layer identified three main crossing vessels of the lateral femoral circumflex. These were cauterized in multiple locations and then cut without any noticeable bleeding. The TFL was further released bluntly from the deep fascia to expose anterior hip capsule and fat the Sascha orthopaedic retractor was then placed beneath the TFL and against sartorius and medial soft tissues to protect and retract the soft tissues. A T-capsulotomy was then performed starting at the superior lateral acetabulum and moving distally to the intertrochanteric ridge and the natural shoulder of the proximal femur from the previous surgery. These capsular flaps were tagged with a No. 1 Ethibond and elevated from within. The capsular flaps were released to the shoulder of the lateral neck and to the lesser trochanter to give excellent visualization of the proximal femur. Continue to release the capsule within the greater trochanter and around the femoral component. I continued the release of the anterior capsule medially and performed releasing incisions of the anterior capsule. There is substantial synovitis seen within the hip. Rongeur as well as a bone electrocautery was used to remove the bulk of the synovium. The synovium was resected such as able to see the acetabular component and the liner 360 degrees. During this procedure there was no anterior traction utilized only a Gelpi retractor. I then inspected the liner which showed edge wear on the posterior lip of the liner. The liner was actually moving within the metal component and there was soft tissue seen actually interposed between the metal and the liner. One of the tabs for the bracket of the screw was also broken. The 2 screws were removed from the periphery of the liner. With the entire circumference of the acetabulum exposed, I proceeded with removal of the acetabular component. Starting with the 52 x 28 short blade, I freed of the periphery of the acetabular component. This was done without significant difficulty. I then used the 52 x 28 longer blade from the Demario extraction system. This was malleted in such that it is at the apex of the cup and then rotated around. As I was rotating this final blade there was notable fraying of the acetabular component. I was able to remove the acetabulum. It was inspected and showed very minimal bone attached except for a spike of bone see over the posterior inferior aspect. There was little bone present in the inferior aspect of the acetabulum. There was still some anterior wall and posterior superior wall and adequate bony columns. Further debridement was performed such that the bony rim was easily identifiable. While the CT scan was suggestive of a cyst there was actually bone in this area was just quite soft. There is no true open cyst. There is no breach medially. I then performed reaming. I used x-ray to ensure I was correctly positioned as well as direct inspection. Starting with the 52 mm reamer I advanced it into the medial wall. I then proceeded with a 53 mm reamer and the planned position of the implant. Given her soft bone, I did not proceed back to the 54 mm reamer. With this in position it had adequate purchase within the bone. I was worried about going too large to ream out any remaining wall. Therefore we opened a 54 millimeters Cornelius acetabular component. The soft tissues around the acetabulum were injected with a mixture of 0.25% Vivacaine, 30 mg ketorolac, and 20 cc of Exparel. The hip was irrigated with Aricept. I then used bone and clot collected from the reamings. I push this into the softer bone centrally as well as superiorly. I then inserted the acetabular component. Light mallet blows seated the component. I was able to remove my hand from the handle in the acetabulum was seated. However, I proceeded with placement of screws. A total of 3 screws were placed. The first 2 screws were placed directly superiorly and traversed within the pelvis between the inner and outer tables. The for screw was a 40 mm screw the site was a 35 mm screw. More anterior screw was placed which was a 15 mm screw. These first 2 screws had excellent purchase with excellent bite into the bone. I then cleaned off the acetabular component as fully as possible. The 54 x 47 mm Cornelius metal liner was then placed into the acetabular component. I ensure that it was well seated and level before impacting it fully. There was tested to make sure it was stable. A trial 47 x 28 dual mobility, BiMentum, system was then applied to the femoral stem. The hip was reduced and tested for stability both with extension and external rotation as well as some flexion and internal rotation. It was noted to be stable with a 28+3 mm head. The trial components were then removed. A small amount of remaining bone graft was packed into any gaps seen around the acetabular component. Any debris was moved from within the acetabulum. The trunnion had no significant wear and it was cleaned. On the back table the 28+3 mm Altrx ceramic head was then inserted into the 47 x 28 dual mobility liner. This was then inserted and impacted onto the femoral stem. It was reduced without significant difficulty. Once again, it was tested for stability and was noted to have no significant shuck and no ability dislocate either anteriorly or posteriorly. Final x-ray images were obtained with fluoroscopy to confirm adequate positioning and no intraoperative fracture. The 3 screws appear to be all within the pelvis and without any significant anterior posterior penetration. While there was a sizable piece of bone from the posterior inferior aspect of the established removed with the acetabular component, there is no deficiency seen on the x-rays of either posterior or anterior column. Remainder of the deep and subcutaneous tissues were then injected with the remainder of the cocktail, consisting of 0.25% bupivacaine, ketorolac, and Exparel. The deep tissues were thoroughly irrigated with Irrisept chlorhexadine solution. The capsule was then reapproximated with the previously placed Ethibond sutures. The TFL fascia was finally closed with a No. 2 Stratafix, barbed suture. Deep tissues were then reapproximated with 0 Vicryl and a running 2-0 Vicryl. The skin was closed with a running 4-0 Monocryl in a subcuticular fashion. This was reinforced with skin glue. A Mepilex silver dressing was applied. At the end of the case, all counts were correct. Tracie was transferred to the hospital bed without difficulty and suffering no apparent complication. Tracie has a good prognosis. Physical therapy will start today and without restrictions, weight-bearing as tolerated. Aspirin 81mg BID will be used for DVT prophylaxis.
== END 2020-10-09 15:51 | disposition home or self-care (01) ==
LOC: SUR 07:48
PROVIDERS: PCP Nurse Practitioner Family; Visit Provider Student in an Organized Health Care Education/Training Program
PROC: (CPT 27130; principal; 2020-10-09 09:45)
DX: T84.84XA Pain due to internal orthopedic prosthetic devices, implants and grafts, initial encounter (principal); Z96.642 Presence of left artificial hip joint; R73.03 Prediabetes; E78.5 Hyperlipidemia, unspecified
CPT/HCPCS: 27137; C1776; 97162; 97530; 73501; J0690; J1100; J1885; J2001; J2250; J2405

== ENCOUNTER 2020-10-22 11:54 | Outpatient (CLI) | payer MEDICARE, BC, SELFPAY ==
--- NOTE | 2020-10-22 11:00 | DI.RAD_ITS ---
Exam(s) XR HIP LT COMPLETE AP PELVIS EXAM: XR HIP LT COMPLETE AP PELVIS CLINICAL HISTORY: follow up. TECHNIQUE: 2D digital imaging was performed. COMPARISON: CR XR HIP LT AP LAT ONLY from 11/18/2019 FINDINGS: Bilateral hip prostheses are noted. Left hip prostheses acetabular component is noted to be secured by 3 screws. There are no screws in the right hip prostheses. Left hip prostheses exhibits stable p osition alignment. No fracture or loosening evident. IMPRESSION: DATA REPOSITORY: RADIATION DOSE DELIVERED:
== END 2020-10-22 11:55 | disposition home or self-care (01) ==
LOC: DIORS 11:54
PROVIDERS: PCP Nurse Practitioner Family; Referring Provider Nurse Practitioner Family; Visit Provider Physician Assistant Surgical
DX: Z96.642 Presence of left artificial hip joint (principal); Z47.1 Aftercare following joint replacement surgery
CPT/HCPCS: 73502

== ENCOUNTER → 2020-11-19 10:31 | Outpatient (BNVA) | payer MEDICARE, BC, SELFPAY | PROVIDERS: PCP Nurse Practitioner Family; Referring Provider Nurse Practitioner Family; Visit Provider Student in an Organized Health Care Education/Training Program | DX: Z47.1 Aftercare following joint replacement surgery (principal); Z96.642 Presence of left artificial hip joint ==

== ENCOUNTER → 2020-12-31 10:53 | Outpatient (BNVA) | payer MEDICARE, BC, SELFPAY | PROVIDERS: PCP Nurse Practitioner Family; Referring Provider Nurse Practitioner Family; Visit Provider Student in an Organized Health Care Education/Training Program | DX: Z47.1 Aftercare following joint replacement surgery (principal); Z96.642 Presence of left artificial hip joint ==

== ENCOUNTER 2021-02-25 11:21 | Outpatient (REF) | payer MEDICARE, BC, SELFPAY ==
[2021-02-25 15:44] LABS: Calculated LDL 135 mg/dL (<100); Cholesterol 225 mg/dL (<200); HDL Cholesterol 78 mg/dL (40-60); Hemoglobin A1C 5.8 % (<5.7); Triglyceride 60 mg/dL (<150)
== END 2021-02-25 11:22 | disposition home or self-care (01) ==
LOC: NCHCN 11:21
PROVIDERS: PCP Nurse Practitioner Family; Visit Provider Nurse Practitioner Family
DX: E78.5 Hyperlipidemia, unspecified (principal); R73.03 Prediabetes
CPT/HCPCS: 80061; 83036

== ENCOUNTER 2021-09-06 09:40 | Outpatient (CLI) | payer MEDICARE, BC, SELFPAY ==
--- NOTE | 2021-09-06 09:30 | DI.RAD_ITS ---
Exam(s) XR HIP LT COMPLETE AP PELVIS EXAM: XR HIP LT COMPLETE AP PELVIS CLINICAL HISTORY: yearly. TECHNIQUE: 2D digital imaging was performed. Four images were obtained. AP and lateral views were o btained. COMPARISON: CR XR HIP LT COMPLETE AP PELVIS from 10/22/2020 FINDINGS: BONES: There are stable post operative changes present. No fracture or dislocation. JOINTS: The orthopedic hardware is in good position. SOFT TISSUE: Normal. IMPRESSION: Stable postoperative changes. DATA REPOSITORY: RADIATION DOSE DELIVERED:
--- NOTE | 2021-09-06 09:30 | DI.RAD_ITS ---
Exam(s) XR KNEE LT 3V AP,LAT,ROSA EXAM: XR KNEE LT 3V AP,LAT,ROSA CLINICAL HISTORY: history of menisectomy. TECHNIQUE: 2D digital imaging was performed of the left knee. Four images were obtained. AP, later al and PA tunnel views were obtained. COMPARISON: CR XR KNEE LT 2V AP,LAT from 11/18/2019 FINDINGS: BONES: No acute fracture is present. No bony destructive lesion is seen. JOINTS: The knee is normally aligned. There is a small joint effusion. There is mild joint space moo rowing and periarticular spurring in the lateral femoral tibial joint. SOFT TISSUE: Normal. IMPRESSION: Degenerative changes in the lateral femoral tibial joint. DATA REPOSITORY: RADIATION DOSE DELIVERED:
--- NOTE | 2021-09-06 09:45 | DI.RAD_ITS ---
Exam(s) XR LUMBAR SPINE AP, LAT EXAM: XR LUMBAR SPINE AP, LAT CLINICAL HISTORY: pain in low back. TECHNIQUE: 2D digital imaging was performed of the lumbar spine. Two images were obtained. AP and lateral views were obtained. COMPARISON: CR ABD FLAT UPRIGHT PA CHEST from 08/08/2014 CR XR HIP LT AP LAT ONLY from 11/18/2019 FINDINGS: BONES: No fracture or destructive lesion. Endplate osteophytes are seen from L3-4 through L5-S1. Dege nerative changes of the facets are seen at L4-5 and L5-S1. DISKS: There is mild disc space narrowing at L5-S1. ALIGNMENT: There is a very mild right curvature of the thoracolumbar spine. There is grade 1 spondyl olisthesis of L3 on L4. No spondylolysis is appreciated. SOFT TISSUE: Surgical clips are again seen in the right upper quadrant of the abdomen. There is part ial imaging of the patient's left hip prosthesis. IMPRESSION: [id number] degenerative changes are seen in the lumbar spine. DATA REPOSITORY: RADIATION DOSE DELIVERED:
== END 2021-09-06 09:41 | disposition home or self-care (01) ==
PROVIDERS: PCP Nurse Practitioner Family; Visit Provider Nurse Practitioner Family
DX: Z96.642 Presence of left artificial hip joint (principal); M77.11 Lateral epicondylitis, right elbow; M47.816 Spondylosis without myelopathy or radiculopathy, lumbar region
CPT/HCPCS: 73562; 99214; 72100; 73502

== ENCOUNTER → 2022-03-11 01:21 | Outpatient (CLI) | payer MEDICARE, BC, SELFPAY ==
--- NOTE | 2022-03-11 09:30 | DI.DEXA_ITS ---
Exam(s) XR DEXA BONE DENSITY W/WO AIRAM EXAM: XR DEXA BONE DENSITY W/WO AIRAM CLINICAL HISTORY: OTHER SPECIFIED DISORDERS OF BONE DENSITY, M85.88; OSTEOPENIA, M85.80 TECHNIQUE: COMPARISON: DX XR DEXA BONE DENSITY W/WO AIRAM from 07/06/2018 FINDINGS: Lateral Spine Image: Unremarkable. No compression deformities identified. The patient has had bilateral hip replacements. Left forearm: Total T-Score: -0.8. This compares to -0.7 on the prior examination. Total Z-Score: 1.4 T- and Z-scores: Within normal limits. Lumbar Spine: Total T-Score: -2.3. This compares to -2.1 on the prior examination. Total Z-Score: 0.0 T- and Z-scores: Findings are consistent with osteopenia. IMPRESSION: Osteopenia in the lumbar spine.
== END ==
PROVIDERS: PCP Nurse Practitioner Family; Visit Provider Nurse Practitioner Family
DX: M85.88 Other specified disorders of bone density and structure, other site (principal); Z13.820 Encounter for screening for osteoporosis
CPT/HCPCS: 77080

== ENCOUNTER 2022-08-08 15:31 | Outpatient (REF) | payer MEDICARE, BC, SELFPAY ==
[2022-08-08 13:57] LABS: ESR 6 mm/hr (0-30)
[2022-08-08 16:35] LABS: C-Reactive Protein 0.15 mg/dL (0.0-0.3)
[2022-08-08 22:39] LABS: Rheumatoid Factor <8.6 IU/mL (<12.0)
[2022-08-12 14:08] LABS: ANA Interpretation Positive (Negative); ANA Titer Pattern 1:80 Homogeneous; ANA Titer Pattern 2 1:160 Speckled
== END 2022-08-08 15:32 | disposition home or self-care (01) ==
LOC: NCHCN 15:31
PROVIDERS: PCP Nurse Practitioner Family; Visit Provider Nurse Practitioner Family
DX: M54.59 Other low back pain (principal); M25.551 Pain in right hip; M85.88 Other specified disorders of bone density and structure, other site
CPT/HCPCS: 85652; 86038; 86140; 86431

== ENCOUNTER 2022-08-14 01:44 | Outpatient (CLI) | payer MEDICARE, BC, SELFPAY ==
--- NOTE | 2022-08-14 | DI.RAD_ITS ---
Exam(s) XR THORACIC SPINE COMPLETE EXAM: XR THORACIC SPINE COMPLETE CLINICAL HISTORY: LOW BACK PAIN, RT HIP PAIN, M54.50, M25.551. TECHNIQUE: 2D digital imaging was performed of the thoracic spine. Three views were obtained. AP, swimmer's and lateral views were obtained. COMPARISON: No exams were available for comparison FINDINGS: BONES: There is no fracture or destructive lesion. There are small endplate osteophytes throughout th e lumbar spine. DISKS:Alignment is within normal limits. There is mild disc space narrowing seen particularly in the mid thoracic spine levels. SOFT TISSUE: Visualized lungs are clear. IMPRESSION: Mild degenerative changes in the thoracic spine. DATA REPOSITORY: RADIATION DOSE DELIVERED:
--- NOTE | 2022-08-14 | DI.RAD_ITS ---
Exam(s) XR LUMBAR SPINE COMPLETE EXAM: XR LUMBAR SPINE COMPLETE CLINICAL HISTORY: BACK PAIN LOW, M54.50, RT HIP PAIN, M25.551. TECHNIQUE: 2D digital imaging was performed of the lumbar spine. Five images were obtained. AP, la teral, right oblique, left oblique and L5-S1 spot views were obtained. COMPARISON: CR XR LUMBAR SPINE AP, LAT from 09/06/2021 CR XR DEXA BONE DENSITY W/WO AIRAM from 03/11/2022 FINDINGS: BONES: No fracture or destructive lesion. Endplate osteophytes are seen in the lumbar spine particula rly at L5-S1. Degenerative changes of the facets are present throughout the lumbar spine. The patien t has bilateral total hip replacements which are incompletely imaged on the current examination. DISKS: Intervertebral disc spaces are maintained. ALIGNMENT: There is a mild right convex curvature of the spine. There is grade 1 anterolisthesis of L3 on L4. No spondylolysis. SOFT TISSUE: Surgical clips are seen in the right upper quadrant of the abdomen which may reflect jennifer or cholecystectomy. IMPRESSION: Moderate degenerative changes in the lumbar spine. DATA REPOSITORY: RADIATION DOSE DELIVERED:
== END 2022-08-14 02:04 ==
LOC: DI 01:45
PROVIDERS: PCP Nurse Practitioner Family; Visit Provider Nurse Practitioner Family
DX: M47.814 Spondylosis without myelopathy or radiculopathy, thoracic region (principal); M47.816 Spondylosis without myelopathy or radiculopathy, lumbar region
CPT/HCPCS: 72072; 72110

== ENCOUNTER 2022-08-21 14:15 | Outpatient (REF) | payer MEDICARE, BC, SELFPAY ==
[2022-08-26 13:15] LABS: dsDNA Ab, IgG <12.3 IU/mL (<30.0)
[2022-08-26 14:32] LABS: SS-A Antibody 1.1 Units (<20.0); SS-B (La) Ab, IgG 2.5 Units (<20.0); Sm (Smith) Ab, IgG 3.8 Units (<20.0)
== END 2022-08-21 14:16 | disposition home or self-care (01) ==
LOC: NCHCN 14:15
PROVIDERS: PCP Nurse Practitioner Family; Visit Provider Nurse Practitioner Family
DX: R79.89 Other specified abnormal findings of blood chemistry (principal); R76.0 Raised antibody titer
CPT/HCPCS: 86225; 86235

== ENCOUNTER 2022-09-22 09:01 | Outpatient (CLI) | payer MEDICARE, BC, SELFPAY | END 2022-09-22 09:02 | disposition home or self-care (01) | PROVIDERS: PCP Nurse Practitioner Family; Visit Provider Nurse Practitioner Family | DX: R00.2 Palpitations (principal) | CPT/HCPCS: 93246 ==

== ENCOUNTER 2022-10-23 08:08 | Outpatient (CLI) | payer MEDICARE, BC, SELFPAY ==
--- NOTE | 2022-10-23 09:05 | W.CARDEVENT ---
Date of service: 10/23/22 Time of Service: 09:05 Cardiac Event Recorder Referring Provider:: Vanessa Couch Indications:: Palpitations Cardiac Event Note: This is a cardiac event monitor ordered for evaluation of palpitations. Patient was monitored for a total of 12 days and 15 hours Predominant rhythm was sinus with an average heart rate of 64. Minimum was 40, maximum 133 There were rare atrial and ventricular ectopic beats A total of 10 self-limited atrial runs occurred. The longest of these was 13 beats in duration There was no atrial fibrillation, no high-grade AV block, no pauses greater than 3 seconds Symptoms were reported but had no correlation with any dysrhythmia
== END 2022-10-23 08:09 | disposition home or self-care (01) ==
LOC: CARDOPNVT 08:08
PROVIDERS: PCP Nurse Practitioner Family; Visit Provider Internal Medicine Cardiovascular Disease
DX: R00.2 Palpitations (principal); I49.1 Atrial premature depolarization
CPT/HCPCS: 93248

== ENCOUNTER 2023-03-17 20:09 | Outpatient (REF) | payer MEDICARE, BC, SELFPAY ==
[2023-03-19 15:09] LABS: ANA Interpretation Positive (Negative)
== END 2023-03-17 20:10 | disposition home or self-care (01) ==
LOC: NCHCN 20:09
PROVIDERS: PCP Nurse Practitioner Family; Visit Provider Nurse Practitioner Family
DX: R79.89 Other specified abnormal findings of blood chemistry (principal)
CPT/HCPCS: 86038

== ENCOUNTER → 2023-11-02 09:39 | Outpatient (BNVA) | payer MEDICARE, BC, SELFPAY | PROVIDERS: PCP Nurse Practitioner Family; Referring Provider Nurse Practitioner Family; Visit Provider Student in an Organized Health Care Education/Training Program | DX: M17.12 Unilateral primary osteoarthritis, left knee (principal) | CPT/HCPCS: 99213 ==

== ENCOUNTER 2024-01-15 01:53 | Outpatient (CLI) | payer MEDICARE, BC, SELFPAY ==
[2024-01-15 11:27] LABS: HGB 13.1 g/dL (11.2-15.7); MCH 30.1 pg (27.0-33.0); MCHC 32.8 % (32.0-36.0); MCV 92 fL (80-95); MPV 9.3 fL (8.0-11.0); Platelet Count 231 10^3/uL (130-400); RBC 4.35 10^6/uL (3.93-5.22); RDW 12.9 % (11.7-14.6); RDW-SD 44.2 fL; WBC 3.87 10^3/uL (4.4-10.8)
[2024-01-15 11:55] LABS: BUN 15 mg/dL (7-18); Calcium 9.7 mg/dL (8.5-10.1); Chloride 103 mmol/L (98-107); Estimated GFR 59.12 (mL/min/1.73m2); Glucose 79 mg/dL (74-106); Potassium 4.7 mmol/L (3.5-5.1); Sodium 143 mmol/L (136-145)
== END 2024-01-15 01:54 | disposition home or self-care (01) ==
LOC: LBO 01:53
PROVIDERS: PCP Nurse Practitioner Family; Visit Provider Student in an Organized Health Care Education/Training Program
DX: M17.12 Unilateral primary osteoarthritis, left knee (principal); Z01.818 Encounter for other preprocedural examination
CPT/HCPCS: 36415; 80048; 85027

== ENCOUNTER 2024-01-15 10:11 | Outpatient (CLI) | payer MEDICARE, BC, SELFPAY ==
--- NOTE | 2024-01-15 09:45 | DI.RAD_ITS ---
Exam(s) XR KNEE LT 1V XR STANDING ALIGNMENT EXAM: XR STANDING ALIGNMENT and XR knee LT 1 V CLINICAL HISTORY: DJD L KNEE. TECHNIQUE: 2D digital imaging was performed. Five images were obtained. COMPARISON: CR XR HIP LT COMPLETE AP PELVIS from 10/22/2020 CR XR KNEE LT 3V AP,LAT,ROSA from 09/06/2021 FINDINGS: BONES: The patient has bilateral total hip replacements. In the right knee, chondrocalcinosis is see n in the femoral tibial joint. The joint spaces are otherwise well maintained. In the left knee, th ere is spurring of the posterior patella. There is mild narrowing of the lateral femoral tibial join t. There is a joint effusion. The ankles are well maintained.There is no significant leg length dis crepancy. SOFT TISSUE: Normal. IMPRESSION: Arthrosis of the knees, left greater than right. DATA REPOSITORY: RADIATION DOSE DELIVERED:
== END 2024-01-15 10:12 | disposition home or self-care (01) ==
LOC: DIORS 10:11
PROVIDERS: PCP Nurse Practitioner Family; Referring Provider Nurse Practitioner Family; Visit Provider Physician Assistant
DX: M17.12 Unilateral primary osteoarthritis, left knee (principal)
CPT/HCPCS: 36415; 80048; 85027; 73560; 77073

== ENCOUNTER 2024-01-26 08:26 | Day surgery (SDC) | payer MEDICARE, BC, SELFPAY ==
[2024-01-26] VITALS (15 sets, daily range): BP systolic 97–159; BP diastolic 33–68; PULSE 52–61; RESP 12–19; TEMP 36.1–36.5; O2SAT 82–100; BMI 19.6
--- NOTE | 2024-01-26 06:26 | ANES.PREOP_ITS ---
General Info Date of Service Date Performed: 01/26/24 Height: 5 ft 5.5 in Weight: 54.431 kg Body Mass Index (BMI): 19.6 Surgical Procedure: Operation Date: 01/26/24 11:10 Proposed Procedure Side Surgeon p Knee Total Arthroplasty w/OrthAlign, Cementless CR Left Mohit Lovell MD Meds Allergies and Home Medications Allergies Allergy/AdvReac Type Severity Reaction Status Date / Time No Known Allergies Allergy Verified 01/26/24 08:49 Home Medication ?Medication ?Instructions ?Recorded Zyflamed 2 tab PO DAILY 07/15/13 multivitamin 1 tab PO DAILY 04/30/20 s-adenosylmethionine 400 mg tablet 400 mg PO DAILY 05/02/20 (CURT-e) atorvastatin 10 mg tablet 20 mg PO DAILY 03/12/23 acetaminophen 500 mg tablet 1,000 mg (2 x 500 mg) PO Q8H PRN 01/26/24 pain #90 tabs aspirin 81 mg tablet,delayed 81 mg PO BID 30 days #60 tabs 01/26/24 release celecoxib 200 mg capsule (Celebrex) 200 mg PO BID PRN #60 caps 01/26/24 dexamethasone 4 mg tablet 4 mg PO DAILY #2 tabs 01/26/24 docusate sodium 100 mg capsule 100 mg PO BID #30 caps 01/26/24 (Colace) gabapentin 300 mg capsule 300 mg PO QHS #14 caps 01/26/24 oxycodone 5 mg tablet 5 mg PO Q4H PRN #18 tabs 01/26/24 pantoprazole 40 mg tablet,delayed 40 mg PO DAILY #14 tabs 01/26/24 release Current Visit Medications: Current Medications Generic Name Dose Route Start Last Admin Trade Name Freq PRN Reason Stop Dose Admin Acetaminophen 1,000 mg 01/26/24 06:00 Acetaminophen 500 Mg Tab PO 01/26/24 23:59 PREOP FRAN Celecoxib 400 mg 01/26/24 06:00 Celecoxib 200 Mg Cap PO 01/26/24 23:59 PREOP FRAN Gabapentin 300 mg 01/26/24 06:00 Gabapentin 300 Mg Cap PO 01/26/24 23:59 PREOP FRAN Ringer's Solution 1,000 mls @ 80 mls/hr 01/26/24 06:00 IV 01/26/24 23:59 INFUSION FRAN Cefazolin Sodium/Dextrose 2 gm in 50 mls @ 100 mls/hr 01/26/24 06:00 Ancef Duplex IVPB 01/26/24 23:59 PREOP FRAN Tranexamic Acid/Sodium Chloride 1,000 mg in 100 mls @ 600 mls/hr 01/26/24 06:00 IVPB 01/26/24 23:59 PREOP FRAN IV Miscellaneous Supplies 1 each 01/26/24 06:00 Iv Access IV 01/26/24 23:59 DIRECTED FRAN Sodium Chloride 0 ml 01/26/24 06:00 Normal Saline Flush 10 Ml Syr IV 01/26/24 23:59 PRN PRN Sodium Chloride 0 ml 01/26/24 06:00 Normal Saline 10 Ml Vial IJ 01/26/24 23:59 DIRECTED PRN Sterile Water 0 ml 01/26/24 06:00 Water,Injection,Sterile 10 Ml Vial IJ 01/26/24 23:59 DIRECTED PRN PFSH Active Problems Active Problems: Problem Status Onset Code Degenerative joint disease of left knee Chronic M17.12 Impairment of speech discrimination Acute H93.299 Spondylosis of lumbar spine Acute M47.816 Right lateral epicondylitis Acute M77.11 Impacted cerumen of right ear Acute H61.21 Sensorineural hearing loss (SNHL) of both ears Acute H90.3 Pain in hip region after hip replacement Acute M25.559, Z96.649 Pain due to left hip joint prosthesis Acute T84.84XA, Z96.642 Right carpal tunnel syndrome Acute G56.01 Hyperlipidemia Acute E78.5 Medical History Medical History Paresthesia of both hands History of prediabetes Anxiety with depression pt. denies this Ventral hernia Former smoker Rash Soft tissue mass Hernia Arthritis Tinnitus Left hip pain Retinal hemorrhage Overflow incontinence pt. denies this Osteopenia Ptosis Prediabetes Pain in right hand Small bowel obstruction (08/08/14) pt. denies this Surgical History Surgical History (Updated 01/26/24 @ 09:11 by Mitesh Melgar RN) History of revision of total replacement of left hip joint (10/09/20) Tear of lateral meniscus of left knee Status post left knee arthroscopy with partial lateral meniscectomy: 12/27/2019 H/O tooth extraction Hx of colonoscopy History of left hip replacement History of umbilical hernia repair History of total replacement of right hip History of cholecystectomy Status post left hip replacement DOS: 06/29/2000 Dr. Heck at [facility] [place] Tobacco Smoking/Tobacco Use Status: Former Tobacco Use Alcohol Alcohol Intake: current Alcohol intake frequency: a few times a month Alcohol type: hard liquor Substance Use Substance use: Never Substance use type: does not use Vital Signs and Lab Results Vital Signs Most Recent Vital Signs in EMR: Temp Pulse Resp BP Pulse Ox 36.1 C L 56 L 16 159/57 H 100 01/26/24 08:51 01/26/24 08:51 01/26/24 08:51 01/26/24 08:51 01/26/24 08:51 Lab Results Blood Type / Crossmatch: No Data to Display Complete Blood Count: White Blood Count 3.87 10^3/uL (4.4-10.8) L 01/15/24 11:20 Red Blood Count 4.35 10^6/uL (3.93-5.22) 01/15/24 11:20 Hemoglobin 13.1 g/dL (11.2-15.7) 01/15/24 11:20 Hematocrit 40.0 % (36.0-46.0) 01/15/24 11:20 Platelet Count 231 10^3/uL (130-400) 01/15/24 11:20 Complete Metabolic Panel: Sodium 143 mmol/L (136-145) 01/15/24 11:20 Potassium 4.7 mmol/L (3.5-5.1) 01/15/24 11:20 Chloride 103 mmol/L (98-107) 01/15/24 11:20 Carbon Dioxide 33.0 mmol/L (21.0-32.0) H 01/15/24 11:20 BUN 15 mg/dL (7-18) 01/15/24 11:20 Creatinine 1.0 mg/dL (0.55-1.02) 01/15/24 11:20 Est GFR (CKD-EPI 2020) 59.12 (mL/min/1.73m2) 01/15/24 11:20 Calcium 9.7 mg/dL (8.5-10.1) 01/15/24 11:20 Glucose 79 mg/dL (74-106) 10/18/24 11:20 Liver Function Panel: No Data to Display Coagulation Panel: No Data to Display Cardiac Panel: No Data to Display Arterial Blood Gas: No Data to Display Venous Blood Gas: No Data to Display Pancreas Panel: No Data to Display Thyroid Panel: No Data to Display Infectious Disease: No Data to Display Blood Cultures: No Data to Display Toxicology Panel: No Data to Display Anesthesia Assessment and Plan Anesthesia History Personal History: No History of Anesthesia Complications Family History: No Family History of Anesthesia Complications Exercise Tolerance Exercise Tolerance: Metabolic Equivalents>4 Cardiac & Pulmonary Exam Cardiac Exam: Normal S1/S2 Heart Sounds Pulmonary Exam: Clear Bilateral Breath Sounds Implantable Cardiac Device Does patient have a Pacemaker or an ICD?: No Airway Exam Known Difficult Airway: No Mallampati Class: 1 Mouth Opening: Normal (> 3cm) Thyromental Distance: Greater than 3 cm Neck Range of Motion: Full ROM Neck Circumference: Normal Teeth Condition: Normal Dentition ASA Classification ASA Score: ASA 2 Emergency Case?: No NPO Status NPO Status: NPO Clears >2 hours, Solids >8 hours Anesthesia Plan Resuscitation Status: Full Code Anesthesia Technique: Spinal Anesthesia Airway Planned: Natural Airway Pain Management: Surgeon and patient request nerve block Monitors Used: Standard Monitors and SedLine Preoperative Comments:: 73 yo female for TKA. Sig PMHx: lumbar spondylosis, preDM, anxiety/depression. former smoker, occ EtOH. Previous Anes: - hip revision, 2 attempt spinal, prop sedation. - hernia, prop, natural airway, no issues. - knee scope, LMA 4, easy mask, no issues. Plan: Adductor canal block preoperatively, spinal anesthetic, general for sedation w/ natural airway.
--- NOTE | 2024-01-26 07:10 | W.PM.DSUDISC ---
Date of service: 01/26/24 Time of Service: 07:13 Discharge Plan Disposition Patient Disposition: Home Condition: Good Discharge Details Reason For Visit: Left knee DJD Attending Provider: Mohit Lovell Primary Care Provider: Denise Alanis Home Meds and New Rx's Prescriptions: New celecoxib [Celebrex] 200 mg capsule 200 mg PO BID PRNQty: 60 0RF Rx Instructions: Take one tablet twice daily for pain and inflammation aspirin 81 mg tablet,delayed release (DR/EC) 81 mg PO BID 30 Days Qty: 60 0RF acetaminophen 500 mg tablet 1,000 mg PO Q8H PRN Qty: 90 0RF Rx Instructions: Take two tablets up to every 8 hours as needed for pain pantoprazole 40 mg tablet,delayed release (DR/EC) 40 mg PO DAILY Qty: 14 0RF dexamethasone 4 mg tablet 4 mg PO DAILY Qty: 2 0RF Rx Instructions: Take one tablet once daily for two days docusate sodium [Colace] 100 mg capsule 100 mg PO BID Qty: 30 0RF gabapentin 300 mg capsule 300 mg PO QHS Qty: 14 0RF Rx Instructions: Take one tablet at bedtime morphine 15 mg tablet 15 mg PO Q4H PRNQty: 18 0RF Rx Instructions: Take one tablet up to ever 4 hours as needed for severe postoperative pain Continued atorvastatin 10 mg tablet 20 mg PO DAILY Zyflamed 1 TAB tablet 2 tab PO DAILY multivitamin Tablet 1 tab PO DAILY CURT-e 400 mg Tablet 400 mg PO DAILY Discharge Instructions Additional Instructions: Total Knee Discharge Instructions Activity: The most important activity is to walk and to work on gentle motion (both flexion and extension). You should try to take short walks a few times a day. It is important that when resting you work on keeping the knee straight. Avoid putting a pillow behind the knee as this will encourage flexion. Work on range of motion exercises as provided by Physical Therapy. - Start outpatient physical therapy within 2 weeks. - You should wear the MIK hose on both legs for 2 weeks. You may remove these at night. You may also use any compression sock in place of the MIK hose. - Utilize [employer] to review exercises, see videos on exercises and obtain basic information pertaining to your surgery and your recovery. Dressing: Remove the Jaswinder wrap by 2 days after your surgery and put on the MIK stocking given to you from the hospital. Keep the surgical dressing (underneath the JASWINDER wrap) in place for at least one week. After the first week it may be removed and replaced with light gauze and tape or nothing. The wound and dressing may get wet after 3 days but avoid soaking the dressing or otherwise it will need to be changed. Many people prefer covering the dressing with cling wrap (saran wrap) to minimize it from getting soaked. If it gets wet, just pat dry. If it starts to peel off then it will need to be changed. Medications: - You should take Tylenol and anti-inflammatory Celebrex as your primary pain control medications. If the Celebrex is too expensive or not covered, please call the office for another alternative (Advil/Ibuprofen or Naproxen/Aleve) - You have been prescribed a stronger pain medication Morphine for breakthrough pain, take as needed as prescribed. - You have also been prescribed a stomach acid reduction agent Pantoprozole to help reduce stomach acid and reflux. - You have been prescribed Gabapentin to take at night for restlessness and nerve pain. - You will be taking Aspirin 81mg twice a day for DVT prevention unless instructed otherwise. - You have also been prescribed Decadron to take to control post-operative nausea and pain. You will start this tomorrow. - If you have constipation you should take Colace (which has been prescribed) or Miralax (which is available [id number]). It takes most people 3-4 days to have a bowel movement. Follow-up: 2 weeks If you have any acute concerns or questions, please do not hesitate to contact the office at [phone]. You may contact Dr. Lovell with any questions after hours through the hospital at [phone] or on his cell phone at [phone]. Stand Alone Forms: Anesthesia Discharge Inst., Jaja Zhang (U) Referrals: Mohit Lovell MD [ [facility] STAFF PHYSICIAN] - 02/08/24 10:45 am Equipment/Supplies: Walker Activity:: Elevate Remove Dressings/Wound Care:: Do Not Remove Shower/Bathe:: Cover Diet:: As Tolerated Discharge Orders Discharge Orders: Discharge Order (Routine); Ordered 01/26/24 Ordered By: Susie Mata
[2024-01-26] MEDS: Lactated Ringers 1,000 ML 80 ML IV (09:28)
[2024-01-26] MEDS: Celecoxib 200 MG CAP 400 MG PO (09:30)
[2024-01-26] MEDS: Gabapentin 300 MG CAP PO (09:30)
[2024-01-26] MEDS: Acetaminophen 500 MG TAB 1000 MG PO (09:30)
--- NOTE | 2024-01-26 10:28 | W.ANESNERVE ---
Nerve Block Single Injection Procedure Date and Time Date Performed: 01/26/24 Procedure Start: 09:55 Location Where Procedure Performed Procedure Location: Day Surgery Unit Reason Performed: Postoperative Analgesia Requesting Provider: Mohit Lovell Timeout Performed Timeout Performed: Yes Monitoring Used ECG, Blood Pressure, SpO2 and See EMR for corresponding vital signs Sterility Sterility: Hand Hygiene, Surgical Cap, Surgical Mask, Sterile Gloves, Eye Protection and Chlorhexidine Sedation Given During Procedure Sedation Given (Indicate Dose Given): Versed IV Dose:: 1mg Patient Mental Status Patient Mental Status: Awake Nerve Block 1st Nerve Block: Laterality: Left Block Type: Adductor Canal Ultrasound Image Saved?: Yes Needle / Catheter Used: 100mm SonoPlex II Local Anesthetic Bolus (Indicate Dose Given): Lidocaine used for local infiltration of skin, Injected in 3-5ml increments after negative blood aspiration and Bupivacaine 0.25% Dose:: 10ml Additives (Indicate Dose Given): None Ultrasound: Sterile probe cover and gel used Nerve Stimulator: Supplement to Ultrasound use and No twitch or parasthesia noted < 0.5 mA Paresthesia: None Procedure Tolerated: No Complications and Patient tolerated well Procedure Outcome: Successful Performed By: Roger Godinez Supervised By: Fredi Mercer
[2024-01-26] MEDS: ceFAZolin 2 GM/50 ML BAG IVPB (10:30)
--- NOTE | 2024-01-26 10:44 | W.PM.OP ---
Date of service: 01/26/24 Time of Service: 10:44 Operative Note Operative Note DATE OF PROCEDURE: 01/26/24 PRE-OP DIAGNOSIS: Left Knee Osteoarthritis POST-OP DIAGNOSIS: same PROCEDURE: Left Total Knee Replacement with Intraoperative Navigation SURGEON: Mohit Lovell RADIO CONTROL CRANE OPERATOR: Susie Mata ANESTHESIA TYPE: Spinal Refer to Anesthesia Record ESTIMATED BLOOD LOSS: 100 PATHOLOGY: none sent TOURNIQUET TIME: 0 COMPLICATIONS: None Patient was transported to: PACU Patient's condition: stable Implants: 1. Depuy Attune Cementless Cruciate Retaining Femoral Component, Size 7 2. Depuy Attune Cementless Fixed Bearing Tibial Component, Size 5 3. Depuy Attune 7x5mm CR/FB Poly 4. Depuy Attune Patellar Component, Size 35 Indications: I have seen Anna in clinic for symptoms of LEFT knee arthritis, confirmed with radiographic findings. She has exhausted nonoperative methods and was having significant limitations in daily function and desired better function and less pain. I discussed the technical details of a knee replacement. I explained the risks of the procedure to include, but not limited to, bleeding, infection, pain, stiffness, fracture, damage to nerves and vessels, damage to muscles and tendons, loosening, need for repeat procedure, blood clot and cardiopulmonary demise. Despite these risks, Anna elected to proceed. Findings: There was significant signs of arthritis throughout the knee. Procedure Description: Anna was greeted in the preoperative holding area where the correct side was identified and marked. The consent was reviewed with the patient and signed. The history and physical was updated. All questions were answered. Preoperative mediacations were administered: Acetaminophen 1000mg, Celebrex 400mg, and Gabapentin 300mg. An adductor canal block was then administered by the anesthesia team in the DSU. She was taken back to the operating room. A spinal anesthestic was then administered. The patient was placed into the supine position on the operating room table. A nonsterile tourniquet was placed high onto the leg. Posts were placed for positioning during the procedure. All bony prominences were well padded. Prophylactic antibiotics in the form of Cefazolin were administered. 1g of Tranxemic Acid was given intravenously within 30 minutes of incision. The left leg was then prepped with Chloraprep and draped in a standard fashion with impervious stockinette. A second prep with Chloraprep was performed prior to application of Iodine impregnated skin protection. A timeout to confirm correct identity, side and site, procedure, allergies, anesthesia, and medical concerns was performed. With the knee in some flexion, a midline incision was made overlying the knee. Full thickness skin flaps were raised once the extensor mechanism was encountered. These were raised medially and laterally. Any bleeding was controlled with electrocautery. Once the extensor mechanism was fully exposed, a medial parapatellar arthrotomy was performed in a flexed position. All bleeding from the arthrotomy and the geniculate arteries was coagulated. A medial subperiosteal peel was performed with electrocautery to the midcoronal plane. The fat pad was removed while keeping the patellar tendon protected. The anterior distal femur synovium was removed for later visualization. The ACL and PCL were resected and the anterior horn of the lateral meniscus was transected. The knee was then flexed with the patella everted. A single starting pin was then placed 1cm anterior to the PCL insertion and the notch in the direction of the femoral head. The OrthoAlign device was applied over the pin. It was oriented to be in line with the epicondylar axis and the trochlear groove. It was then pinned into place. The navigation computer was then turned on and calibrated. The distal femur cut was set at 0 degrees varus and 3.5 degrees flexion. The distal femur cutting guide then was positioned for a 9mm cut. The distal femur was cut with an oscillating saw while protecting the soft tissues. The tibia was then addressed. The OrthoAlign device was placed over the tibial tubercle and medial tibia and secured into position. Once again, OrthoAlign was calibrated and then set for a 0 degree varus cut and 6 degrees of posterior slope. With this locked into position, the cut thickness stylus was used to assess cut thickness. The lateral side, most involved side, was set for a 6mm cut. This was then held in position and pinned into place with 2 additional pins and a cross pin for stability. The medial and lateral collateral ligaments were protected and the cut was performed. With this completed, it was assessed and noted to be of appropriate dimensions. The guide and OrthoAlign was removed. A spacer block was inserted and the knee was brought into extension to ensure enough space was present. . The Orthoalign gap balancing device was then placed in extension. This was used to ensure that the ligaments were properly balanced with up to 2 to 3 mm laxity laterally compared medially. The extension gap was measured as 18mm. The knee was then brought into 90 degrees of flexion and the ligament body welder was once again placed. Under the same amount of force the flexion gap was measured. The Attune specific jig was placed and the flexion gap was made to match the extension gap. The femur was then sized as a size 7. The 4-in-1 cutting guide was the placed. An daljit wing was used to confirm appropriate position of the anterior cut to avoid notching. This cutting guide was ensured to be flush on the cut surface and then pinned into place with headed pins. While protecting the soft tissues, quad tendon, and collateral ligaments, the anterior and posterior cuts were performed with a saw. The central two pins were removed and the posterior and anterior chamfers were cut next. The notch-cutting guide was placed. This was pinned to lateralize the femoral component as much as possible while keeping it flush on the cut surface. This was then pinned into position. A saw was used to make the notch cut. A rasp smoothed the cut surfaces. The medial and lateral menisci were removed. A trial femoral component was then inserted, impacted down to the cut surfaces, and the lug holes were drilled. A provisional trial tibial component was placed and the knee was brought through range of motion. There was noted to be excellent extension and flexion. There was no significant instability. The patella was tracking without thumbs. A size 5mm polyethylene component provided the best range of motion and stability with less than 2mm gapping with medial and lateral stress and full extension without significant hyperextension. The tibial cut surface was fully exposed. The tibia was then sized as a 5. The tibia had been previously marked during trialing to correspond to the center of the tibial component to help with rotation. The trial was aligned to this karen, approximately rotated to the medial 1/3rd of the tibial tubercle. The trial was pinned into place. The tibia was prepared with a reamer and a keel punch and lug holes. The knee was then brought into extension and the patella was measured as 25mm. Using the patellar clamp and cut guide, this was resected to a flat surface with at least 13mm of thickness remaining. The size 35 patella fit the best. This was oriented and then clamped into position. The lugs were drilled. The trial components were removed. The final components were opened on the back table. The periosteal and capsular tissues, especially posteriorly, around the knee were then systematically injected with a periarticular cocktail consisting of 246mg of Ropivacaine, 0.5mg of Epinephrine, 0.08mg of Clonidine, and 30mg of Ketorolac, diluted to 100cc. On the back table, with the implants opened, the cement was mixed. One batch of high viscosity cement was prepared with vacuum assistance. After the cement was ready a small amount was placed on the cut surface of the patella and the patellar button was clamped into position and held. While the cement was hardening, the cementless knee components were placed. Starting with the tibial component, the tibia was subluxed anteriorly and the lug holes of the component were lined up. The tibia was then impacted with an impactor and mallet until the tibial component was in contact with the tibia. Then, the femoral component was inserted. The lug holes were aligned and the component was impacted into position. The final polyethylene component was inserted. The knee was irrigated with Surgiphor Betadine solution. This was allowed to sit in the knee for 3 minutes and then it was thoroughly irrigated out with saline. After the cement had finally cured, approximately 15min, the clamp was removed from the patella and the knee was taken through range of motion. The patella was tracking with a no-thumbs technique. The capsule was then reapproximated with a No. 1 Vicryl at multiple locations. The capsule was finally closed with a No. 2 Stratafix, barbed suture. Deep tissues were then reapproximated with 0 Vicryl and 2-0 Vicryl. The skin was closed with a running 3-0 Monocryl in a subcuticular fashion. This was reinforced with skin glue. A Mepilex silver dressing was applied along with a [id number] ILANA wrap. A CryoCuff was applied. Anna was transferred to the hospital bed without difficulty an suffering no apparent complication. She has a good prognosis. Physical therapy will start today and without restrictions, weight-bearing as tolerated. Aspirin 81mg BID will be used for DVT prophylaxis.
[2024-01-26] MEDS: TRANEXAMIC ACID/SOD. CHL. 1,000 MG/100 ML BAG 600 MG IVPB (10:45)
--- NOTE | 2024-01-26 13:01 | W.ANESPOSTOP ---
Postoperative Evaluation Date, Time and Location Date Performed: 01/26/24 Time Performed: 13:01 Patient Location: PACU Vital Signs Most Recent Imported Vital Signs: Most Recent Vital Signs Temp Pulse Resp BP Pulse Ox 36.5 C 52 L 13 103/49 L 96 01/26/24 12:45 01/26/24 12:26 01/26/24 12:26 01/26/24 12:26 01/26/24 12:26 Pain Score Most Recent Pain Score: Most Recent Pain Score Pain Level 0 01/26/24 12:45 Assessment Mental Status: Awake (Alert & Oriented to Patient Baseline) Airway and Respiratory Function: Patent airway with normal (patient baseline) respiratory exam Cardiovascular Function: Hemodynamically Stable Hydration Status: Adequately Hydrated Nausea & Vomiting: No Nausea or Vomiting Pain: Pain is tolerable per patient Peripheral Nerve Block: Regional nerve block not resolved at time of post operative discharge
[2024-01-26] MEDS: MORPHine IR 15 MG TAB PO (13:34)
--- NOTE | 2024-01-26 13:35 | PT.INIE ---
PT Notes Visit Reasons: Left knee DJD Physical Therapy Day Surgery Initial Evaluation Date: 01-26-2024 Referring Doctor: Dr Lovell PT Orders: PT CONSULT:s/p Ortho surgery Precautions: WBAT LLE TEDs x 2 weeks Patient Profile/Admitting Diagnosis: Tracie is a 73 yo female presenting s/p elective left TKA d/t DJD on 01-26-2024. Post op uncomplicated PMHX: Spondylosis of lumbar spine, Right lateral epicondylitis, [place], Left KEVYN, Right Carpal tunnel syndrome, HLD, Impairment of speech discrimination Social History/Home Situation: Pt resides alone in a single level home with 2 4 inch steps to deck to enter her home which is currently being renovated. She reports she will be staying with friends for a week . Her friends have 2 platform steps 4 inch to enter. Once she returns to her home she states she will enter from her deck into her bedroom that has an ensuite bathroom. She states her friends will visit and bring her food. She will likely not have a functioning kitchen. Equipment Owned/DME: FWW, cane raised toilet seat. Subjective: Pt reports her leg is sore along lateral ankle and calf as well as posterior knee during ambulation. Upon further discussion pt reports she was walking on the ball of her Left foot prior to surgery d/t pain. Objective: [] General Observation: female slightly apprehensive about moving but agreeable to participate Mental Status: alert and oriented x 4 Pain:Left knee 2/10 ROM: [] Right Upper Extremity: WNL Left Upper Extremity: WNL Right Lower Extremity: WNL Left Lower Extremity: hip WNL knee : 7-87 degrees, ankle dorsiflexion to neutral with knee extension Strength: [] Right Upper Extremity:5/5 Left Upper Extremity: 5/5 Right Lower Extremity: 5/5 Left Lower Extremity:hip flexion 3-/5, abduction 3/5, knee extension 3-/5 slight quad lag with reduced SLR, knee flexion 2-/5 ankel 3/5 Sensation: intact Bed Mobility/Transfers: Supine to sit independent Sit to stand independent Stand to sit independent Bed to chair supervision with FWW Gait: supervision with FWW 170 feet decrease heel strike left, impaired knee flexion, early heel off, increased weightbearing through upper extremities Stairs: 3 4 inch steps with cane and contact-guard assist step to pattern Balance: [] Static Sitting: Normal Dynamic Sitting: Good Static Standing: Good Dynamic Standing: Fair plus Special Tests: [] Mobility Limitations Standardized Measure [] [facility] 6 clicks Basic Mobility Inpatient Short Form: [] Raw Score: 22 CMS Score: 20.91% Informed Consent/Education: Patient instructed in purpose of PT consult. Packet containing TKA exercise protocol has been given to patient. Education and training on initial set of exercises that can be done at home have been completed with patient. Assessment: Patient demonstrates discomfort left lateral ankle and calf up to posterior knee during ambulation likely related to gait deviations prior to surgery as patient reported she walked on the ball of her foot reducing length of heel cord. Patient presents with clinical signs and symptoms consistent with current/admitting diagnoses that have resulted to mobility limitations, gait instability, generalized weakness, and impairment of motor control as demonstrated by the following impairment level findings: 1. Decreased strength to left knee major muscle groups 2. Impaired standing balance 3. Limitation of joint range of motion in left knee, left ankle Impairments are contributing to the following functional limitations: 1. Inability to safely ambulate without assistive device 2. Increase completion time for mobility ADL performance 3. Increased fall risk Patient is assessed as a moderate complexity based on the following: History: 73 year-old female with impairment level findings, functional limitations, and past medical history as indicated above Examination: Demonstrable impairment in strength, balance, and mobility level with underlying impairments and functional limitations as documented above Presentation: stable Decision Making: Moderate Goals: N/A. . Plan of Care/Treatment Plan: N/A. DISCHARGE RECOMMENDATIONS: Home with outpatient PT as scheduled TREATMENT CODE/TIME: 44625, [id number] Thank you for the opportunity to participate in the care of this patient. Sylvia Grant PT Please sign an return this page within 30 days if you agree with the above POC. Thank you! Physician Signature Date [facility]
== END 2024-01-26 15:30 | disposition home or self-care (01) ==
LOC: SUR 08:27
PROVIDERS: PCP Nurse Practitioner Family; Visit Provider Student in an Organized Health Care Education/Training Program
PROC: (CPT 27447; principal; 2024-01-26 11:00)
DX: M17.12 Unilateral primary osteoarthritis, left knee (principal); R73.03 Prediabetes; E78.5 Hyperlipidemia, unspecified; H90.3 Sensorineural hearing loss, bilateral; Z96.643 Presence of artificial hip joint, bilateral; G89.18 Other acute postprocedural pain
CPT/HCPCS: 20985; 27447; 64447; 76942; 97162; 97530; C1776; J0665; J0690; J1100; J2250; J2401; J2405; J2704

== ENCOUNTER 2024-02-08 15:39 | Outpatient (CLI) | payer MEDICARE, BC, SELFPAY ==
--- NOTE | 2024-02-08 10:45 | DI.RAD_ITS ---
Exam(s) XR KNEE LT 1V XR STANDING ALIGNMENT EXAM: XR STANDING ALIGNMENT and XR knee LT 1 V CLINICAL HISTORY: 1ST POST OP L TKA. TECHNIQUE: 2D digital imaging was performed. Five images were obtained. COMPARISON: CR XR KNEE LT 1V from 01/15/2024 CR XR STANDING ALIGNMENT from 01/15/2024 FINDINGS: BONES: Patient has bilateral total hip arthroplasty. Since the prior examination, the patient has un dergone a left total knee arthroplasty. The orthopedic hardware appears in good position. In the ri ght knee, there is chondrocalcinosis and mild narrowing of the medial femoral tibial joint. The ankl es are well maintained.The right lower extremity is 2 cm shorter than the left lower extremity. SOFT TISSUE: Normal. IMPRESSION: Left total knee arthroplasty. Arthrosis of the right knee. DATA REPOSITORY: RADIATION DOSE DELIVERED:
== END 2024-02-08 15:40 | disposition home or self-care (01) ==
LOC: DIORS 15:39
PROVIDERS: PCP Nurse Practitioner Family; Referring Provider Nurse Practitioner Family; Visit Provider Student in an Organized Health Care Education/Training Program
DX: Z96.652 Presence of left artificial knee joint (principal); Z47.1 Aftercare following joint replacement surgery
CPT/HCPCS: 99024; 73560; 77073

== ENCOUNTER → 2024-03-07 10:28 | Outpatient (BNVA) | payer MEDICARE, BC, SELFPAY | PROVIDERS: PCP Nurse Practitioner Family; Referring Provider Nurse Practitioner Family | DX: Z47.1 Aftercare following joint replacement surgery (principal); M76.32 Iliotibial band syndrome, left leg; Z96.652 Presence of left artificial knee joint | CPT/HCPCS: 99024 ==

== ENCOUNTER → 2024-04-04 09:17 | Outpatient (BNVA) | payer MEDICARE, BC, SELFPAY | PROVIDERS: PCP Nurse Practitioner Family; Referring Provider Nurse Practitioner Family; Visit Provider Student in an Organized Health Care Education/Training Program | DX: Z47.1 Aftercare following joint replacement surgery (principal); Z96.652 Presence of left artificial knee joint | CPT/HCPCS: 99024 ==

== ENCOUNTER → 2024-04-25 11:00 | Outpatient (BNVA) | payer MEDICARE, BC, SELFPAY | PROVIDERS: PCP Nurse Practitioner Family | DX: G56.01 Carpal tunnel syndrome, right upper limb (principal); Z47.1 Aftercare following joint replacement surgery; Z96.652 Presence of left artificial knee joint | CPT/HCPCS: 99213 ==

== ENCOUNTER 2024-05-05 12:25 | Outpatient (REF) | payer MEDICARE, BC, SELFPAY ==
[2024-05-05 14:56] LABS: ALT 17 U/L (14-59); AST 19 U/L (15-37); Albumin 3.9 g/dL (3.4-5.0); Alkaline Phosphatase 80 U/L (46-116); Anion Gap 4.6 mmol/L (3-11); BUN 23 mg/dL (7-18); Bilirubin, Total 0.49 mg/dL (0.2-1.0); CO2 31.4 mmol/L (21.0-32.0); CREATININE 1.2 mg/dL (0.55-1.02); Calcium 9.3 mg/dL (8.5-10.1); Calculated LDL 157 mg/dL (<100); Chloride 102 mmol/L (98-107); Cholesterol 258 mg/dL (<200); Glucose 89 mg/dL (74-106); HDL Cholesterol 83 mg/dL (40-60); Potassium 4.2 mmol/L (3.5-5.1); Sodium 138 mmol/L (136-145); Total Protein 6.9 g/dL (6.4-8.2); Triglyceride 90 mg/dL (<150)
== END 2024-05-05 12:26 | disposition home or self-care (01) ==
LOC: NCHCN 12:25
PROVIDERS: PCP Nurse Practitioner Family; Visit Provider Nurse Practitioner Family
DX: E78.5 Hyperlipidemia, unspecified (principal)
CPT/HCPCS: 80053; 80061

== ENCOUNTER 2024-06-15 12:56 | Day surgery (SDC) | payer MEDICARE, BC, SELFPAY ==
--- NOTE | 2024-06-15 07:40 | PDOC.DSDIS_ITS ---
Date of service: 06/15/24 Discharge Plan Disposition Patient Disposition: Home Condition: Good Discharge Details Reason For Visit: R ECTR Attending Provider: Mohit Lovell Primary Care Provider: Denise Alanis Home Meds and New Rx's Prescriptions: New hydrocodone-acetaminophen 5-325 mg tablet 1 tab PO Q6H PRN (Reason: pain) Qty: 4 0RF acetaminophen 500 mg tablet 1,000 mg PO TID Qty: 90 0RF ibuprofen 600 mg tablet 600 mg PO TID PRN (Reason: pain) Qty: 90 0RF Continued atorvastatin 10 mg tablet 20 mg PO DAILY Zyflamed 1 TAB tablet 2 tab PO DAILY multivitamin Tablet 1 tab PO DAILY CURT-e 400 mg Tablet 400 mg PO DAILY acetaminophen 500 mg tablet 1,000 mg PO Q8H PRN Qty: 90 0RF Rx Instructions: Take two tablets up to every 8 hours as needed for pain Discharge Instructions Stand Alone Forms: Liliya Lewis Tunnel Release Referrals: Mohit Lovell MD [ [facility] STAFF PHYSICIAN] - Activity:: Activity as Tolerated Remove Dressings/Wound Care:: 48 hours Shower/Bathe:: 48 hours Diet:: As Tolerated Discharge Orders Discharge Orders: Discharge Order (Routine); Ordered 06/15/24 Ordered By: Julio Cesar Cadena DS: Diagnosis Discharge Diagnosis (1) Right carpal tunnel syndrome: Status: Acute
[2024-06-15 13:12] VITALS: BP 146/53; PULSE 60; RESP 14; TEMP 36.5; O2SAT 99
[2024-06-15] MEDS: Cephalexin 500 MG CAP 1000 MG PO (13:22)
[2024-06-15] MEDS: Lidocaine 1% Multi-Dose W/EPI 1/100,000 50 ML VIAL (15:20)
[2024-06-15] MEDS: Sodium Bicarbonate 50 MEQ/50 ML VIAL (15:20)
[2024-06-15 15:40] VITALS: BP 136/75; PULSE 67; RESP 16; TEMP 36.5; O2SAT 100
--- NOTE | 2024-06-15 22:34 | W.PM.OP ---
Operative Note Operative Note PRE-OP DIAGNOSIS: Left Carpal Tunnel Syndrome POST-OP DIAGNOSIS: same PROCEDURE: Left Endoscopic Carpal Tunnel Release SURGEON: Mohit Lovell ANESTHESIA TYPE: Local By Surgeon Refer to Anesthesia Record ESTIMATED BLOOD LOSS: 0 PATHOLOGY: none sent TOURNIQUET TIME: 6 COMPLICATIONS: None Patient was transported to: same day Patient's condition: stable Indications: I have seen Anna in clinic for symptoms of carpal tunnel syndrome. The numbness, tingling, and pain limited function. Clinical exam findings confirmed the diagnosis of carpal tunnel syndrome. Nonoperative measures such as bracing, time, activity modifications had been tried but disability and pain persisted. I discussed carpal tunnel release with the patient. I reviewed the risks of the procedure to include, but not limited to, bleeding, infection, pain, stiffness, incomplete release, damage to nerves or vessels, persistent numbness, recurrence. Despite these risks, the patient elected to proceed. Findings: There was tightened carpal tunnel. This was dilated and released successfully with the endoscopic with increased space within the tunnel. The antebrachial fascia was released proximally freeing the median nerve at the wrist. Procedure Description: Anan was greeted in the preoperative holding area where the correct side was identified and marked. The consent was reviewed with the patient and signed. The history and physical was updated. All questions were answered. She was taken back to the operating room. The patient was placed into the supine position on the operating room table with the left arm on an arm board. A nonsterile tourniquet was placed high onto the arm. All bony prominences were well padded. Prophylactic antibiotics in the form of Cefazolin were administered. The left arm was then prepped with Chloraprep and draped in a standard fashion with stockinette and extremity drape. A timeout to confirm correct identity, side and site, procedure, allergies, anesthesia, and medical concerns was performed. The surgical site was marked in the volar wrist creases in line with the radial border of the fourth ray. This area was anesthetized with approximately 6cc of 1% Lidocaine. The limb was then exsanguinated with an Esmarch. The skin was incised with a 15 blade, approximately 1cm. The skin only was cut and the deeper tissue was dissected bluntly with a tenotomy scissor, avoiding passing nerve and venous structures. The fascia was penetrated and opened bluntly. A two-prong skin hook was placed under this proximal fascial edge. A series of hamate finders were used to identify and dilate the carpal tunnel. Synovial elevator was used to free synovial attachments to the underside of the transverse carpal ligament. My thumb was kept in the palm to karen the distal extent of the carpal tunnel and correctly position the hand. The Microaire endoscope was inserted without difficulty and without resistance. Excellent visualization showed horizontally running fibers of the transverse carpal ligament (TCL). The distal extent of the TCL was visualized and the end of the scope palpated with the thumb. The blade was elevated and withdrawn from distal to proximal. The TCL was split into two flaps. The endoscope was reinserted to confirm complete release and any remnant ligament was incised. The scope was withdrawn and the proximal aspect of the carpal tunnel was grossly inspected and appeared release with the median nerve visible. The antebrachial fascia at the level of the wrist was then freed from the overlying skin and then the underlying median nerve with blunt dissection. This was transected longitudinally for about 3cm proximal to the wrist incision. The wound was then irrigated with easy flow of irrigant distally and proximally. The incision was closed with a single 4-0 Nylon suture. The wound was dressed with Xeroform, Gauze, Kerlix and Jaswinder. The tourniquet was deflated with the initial dressing and held with some pressure. Blood flow returned easily to all digits with capillary refill less than 2 seconds. The patient tolerated the procedure well and was returned to the Same Day Surgery area in a stable condition suffering no known complication. Date of Procedure: 06/15/24
== END 2024-06-15 15:50 | disposition home or self-care (01) ==
LOC: SUR 12:57
PROVIDERS: PCP Nurse Practitioner Family; Visit Provider Student in an Organized Health Care Education/Training Program
PROC: 01N54ZZ Release Median Nerve, Percutaneous Endoscopic Approach (ICD-10-PCS; CPT 29848; principal; 2024-06-15 15:00)
DX: G56.02 Carpal tunnel syndrome, left upper limb (principal)
CPT/HCPCS: 29848; J2004

== ENCOUNTER 2024-06-21 12:54 | Outpatient (REF) | payer MEDICARE, BC, SELFPAY ==
[2024-06-21 15:45] LABS: ALT 21 U/L (14-59); AST 22 U/L (15-37); Albumin 4.3 g/dL (3.4-5.0); Alkaline Phosphatase 74 U/L (46-116); Anion Gap 6.7 mmol/L (3-11); BUN 17 mg/dL (7-18); Bilirubin, Total 0.5 mg/dL (0.2-1.0); CO2 30.3 mmol/L (21.0-32.0); Calcium 9.4 mg/dL (8.5-10.1); Calculated LDL 95 mg/dL (<100); Chloride 106 mmol/L (98-107); Cholesterol 194 mg/dL (<200); Estimated GFR 59.12 (mL/min/1.73m2); Glucose 79 mg/dL (74-106); HDL Cholesterol 88 mg/dL (>or=50); Sodium 143 mmol/L (136-145); Total Protein 7.2 g/dL (6.4-8.2); Triglyceride 59 mg/dL (<150)
== END 2024-06-21 12:55 | disposition home or self-care (01) ==
LOC: NCHCN 12:54
PROVIDERS: PCP Nurse Practitioner Family; Visit Provider Nurse Practitioner Family
DX: E78.5 Hyperlipidemia, unspecified (principal)
CPT/HCPCS: 80053; 80061

== ENCOUNTER → 2024-06-24 10:15 | Outpatient (BNVA) | payer MEDICARE, BC, SELFPAY | PROVIDERS: PCP Nurse Practitioner Family; Referring Provider Nurse Practitioner Family; Visit Provider Physician Assistant | DX: Z47.89 Encounter for other orthopedic aftercare (principal); G56.01 Carpal tunnel syndrome, right upper limb; Z96.652 Presence of left artificial knee joint | CPT/HCPCS: 99024 ==

== ENCOUNTER 2024-11-21 03:27 | Outpatient (CLI) | payer MEDICARE, BC, SELFPAY ==
--- NOTE | 2024-11-21 | DI.RAD_ITS ---
Exam(s) XR HIP PELVIS ADULT BL EXAM: XR HIP PELVIS ADULT BL CLINICAL HISTORY: LBP, M54.50. TECHNIQUE: 2D digital imaging was performed of the pelvis and bilateral hips. Three images were obtained. AP pelvis and lateral views of both hips were obtained. COMPARISON: CR XR HIP LT COMPLETE AP PELVIS from 09/06/2021 FINDINGS: BONES: No acute fracture is present. No bony destructive lesion is seen. JOINTS: No dislocation present. There are stable bilateral hip replacements. No suspicious lucencies are seen in or about the orthopedic hardware. The distal aspects of the femoral stems were not included on this examination. The sacroiliac joints are well maintained. Symphysis pubis is unremarkable. SOFT TISSUE: Normal. IMPRESSION: No acute abnormality. DATA REPOSITORY: RADIATION DOSE DELIVERED:
--- NOTE | 2024-11-21 | DI.RAD_ITS ---
Exam(s) XR LUMBAR SPINE COMPLETE EXAM: XR LUMBAR SPINE COMPLETE CLINICAL HISTORY: LBP, M54.59. TECHNIQUE: 2D digital imaging was performed of the lumbar spine. Five images were obtained. AP, lateral, right oblique, left oblique and L5-S1 spot views were obtained. COMPARISON: CR XR LUMBAR SPINE COMPLETE from 08/14/2022 FINDINGS: BONES: No fracture or destructive lesion. Endplate osteophytes are seen throughout the lumbar spine particularly at L4-5 and L5-S1. There are degenerative changes of the facets. DISKS: There is disc space narrowing seen at L4-5 and L5-S1. ALIGNMENT: There is a mild right convex thoracolumbar scoliosis. There is grade 1 spondylolisthesis of L3 on L4. There is no spondylolysis. SOFT TISSUE: There are surgical clips seen in the right upper quadrant of the abdomen. IMPRESSION: Moderate degenerative changes seen in the lumbar spine. DATA REPOSITORY: RADIATION DOSE DELIVERED:
== END 2024-11-21 03:47 ==
LOC: DI 03:27
PROVIDERS: PCP Nurse Practitioner Family; Visit Provider Nurse Practitioner Family
DX: M51.360 Other intervertebral disc degeneration, lumbar region with discogenic back pain only (principal)
CPT/HCPCS: 73521; 72110

== ENCOUNTER 2024-12-01 14:01 | Outpatient (CLI) | payer MEDICARE, BC, SELFPAY ==
--- NOTE | 2024-12-01 | DI.DEXA_ITS ---
Exam(s) XR DEXA BONE DENSITY W/WO AIRAM EXAM: XR DEXA BONE DENSITY W/WO AIRAM CLINICAL HISTORY: DISORDER BONE DENSITY M85.88 TECHNIQUE: [employer] Horizon C densitometer analysis of the lumbar spine and left forearm. Lateral survey image of the thoracic and lumbar spine. There are bilateral hip prostheses. COMPARISON: DX XR DEXA BONE DENSITY W/WO AIRAM from 07/06/2018 CR XR DEXA BONE DENSITY W/WO AIRAM from 03/11/2022 CR XR THORACIC SPINE COMPLETE from 08/14/2022 CR XR LUMBAR SPINE COMPLETE from 11/21/2024 FINDINGS: Lateral view of the thoracic and lumbar spine shows no gross evidence of compression fractures. The upper and mid thoracic vertebral bodies are not well profiled. Bone mineral density measurements of the lumbar spine correspond to a total T- score of -2.6, in the osteoporotic range. This is not significantly changed from 2021 represents a 9.6 percent decrease from 2019. Theleft forearm bone mineral density measurements correspond to a T-score of the distal 3rd of 0.0, in the normal range. This is not significantly changed from the prior exams.. IMPRESSION: Osteoporosis of the lumbar spine. Normal bone density of the left forearm.
== END 2024-12-01 14:21 ==
LOC: DI 14:02
PROVIDERS: PCP Nurse Practitioner Family; Visit Provider Nurse Practitioner Family
DX: M85.88 Other specified disorders of bone density and structure, other site (principal)
CPT/HCPCS: 77080

== ENCOUNTER 2025-01-26 11:40 | Outpatient (CLI) | payer MEDICARE, BC, SELFPAY ==
--- NOTE | 2025-01-26 10:47 | DI.RAD_ITS ---
Exam(s) XR KNEE LT 2V AP,LAT EXAM: XR KNEE LT 2V AP,LAT CLINICAL HISTORY: ANNUAL F/U L TKA. TECHNIQUE: 2D digital imaging was performed. COMPARISON: CR XR KNEE LT 1V from 02/08/2024 FINDINGS: Two views Stable position alignment of the components of the prosthesis. No fracture or loosening evident. No evidence of osteomyelitis. IMPRESSION: Stable satisfactory appearance DATA REPOSITORY: RADIATION DOSE DELIVERED:
== END 2025-01-26 11:41 | disposition home or self-care (01) ==
LOC: DIORS 11:40
PROVIDERS: PCP Nurse Practitioner Family; Referring Provider Nurse Practitioner Family; Visit Provider Student in an Organized Health Care Education/Training Program
DX: G56.02 Carpal tunnel syndrome, left upper limb (principal); Z47.1 Aftercare following joint replacement surgery; Z96.652 Presence of left artificial knee joint
CPT/HCPCS: 99213; 73560

== ENCOUNTER 2025-02-28 10:52 | Day surgery (SDC) | payer MEDICARE, BC, SELFPAY ==
--- NOTE | 2025-02-28 07:26 | W.PM.DSUDISC ---
Date of service: 02/28/25 Discharge Plan Disposition Patient Disposition: Home Condition: Good Discharge Details Reason For Visit: Left carpal tunnel syndrome Attending Provider: Mohit Lovell Primary Care Provider: Denise Alanis Home Meds and New Rx's Prescriptions: New hydrocodone-acetaminophen 5-325 mg tablet 1 tab PO Q6H PRN (Reason: severe pain) Qty: 4 0RF Rx Instructions: Take one tablet up to every 6 hours as needed for severe postoperative pain acetaminophen 500 mg tablet 500 mg PO Q6H PRN (Reason: pain) Qty: 60 2RF ibuprofen 600 mg tablet 600 mg PO TID PRN (Reason: pain) Qty: 60 0RF Continued atorvastatin 10 mg tablet 20 mg PO DAILY gabapentin 100 mg capsule 100 mg PO QHS duloxetine 20 mg capsule,delayed release(DR/EC) 20 mg PO DAILY Zyflamed 1 TAB tablet 2 tab PO DAILY multivitamin Tablet 1 tab PO DAILY CURT-e 400 mg Tablet 400 mg PO DAILY Discharge Instructions Stand Alone Forms: Liliya Lewis Tunnel Release, Portal Information Activity:: Elevate Remove Dressings/Wound Care:: 48 hours Shower/Bathe:: 48 hours Diet:: As Tolerated Discharge Orders Discharge Orders: Discharge Order (Routine); Ordered 02/28/25 Ordered By: Susie Mata
[2025-02-28 11:20] VITALS: BP 119/60; PULSE 65; RESP 16; TEMP 36.4; O2SAT 100
[2025-02-28] MEDS: Cephalexin 500 MG CAP 1000 MG PO (11:29)
[2025-02-28 12:41] VITALS: BP 123/59; PULSE 57; RESP 16; TEMP 36.4; O2SAT 96
[2025-02-28] MEDS: Sodium Bicarbonate 50 MEQ/50 ML VIAL (12:44)
[2025-02-28] MEDS: Lidocaine 1% Multi-Dose W/EPI 1/100,000 50 ML VIAL (12:44)
--- NOTE | 2025-02-28 14:21 | W.PM.OP ---
Operative Note Operative Note PRE-OP DIAGNOSIS: Left Carpal Tunnel Syndrome POST-OP DIAGNOSIS: same PROCEDURE: Left Endoscopic Carpal Tunnel Release SURGEON: Mohit Lovell ANESTHESIA TYPE: Local By Surgeon Refer to Anesthesia Record ESTIMATED BLOOD LOSS: 0 PATHOLOGY: none sent TOURNIQUET TIME: 7 COMPLICATIONS: None Patient was transported to: same day Patient's condition: stable Indications: I have seen Anna in clinic for symptoms of carpal tunnel syndrome. The numbness, tingling, and pain limited function. Clinical exam findings confirmed the diagnosis of carpal tunnel syndrome. Nonoperative measures such as bracing, time, activity modifications had been tried but disability and pain persisted. I discussed carpal tunnel release with the patient. I reviewed the risks of the procedure to include, but not limited to, bleeding, infection, pain, stiffness, incomplete release, damage to nerves or vessels, persistent numbness, recurrence. Despite these risks, the patient elected to proceed. Findings: There was tightened carpal tunnel. This was dilated and released successfully with the endoscopic with increased space within the tunnel. The antebrachial fascia was released proximally freeing the median nerve at the wrist. Procedure Description: Anna was greeted in the preoperative holding area where the correct side was identified and marked. The consent was reviewed with the patient and signed. The history and physical was updated. All questions were answered. She was taken back to the operating room. The patient was placed into the supine position on the operating room table with the left arm on an arm board. A nonsterile tourniquet was placed high onto the arm. All bony prominences were well padded. Prophylactic antibiotics in the form of Cephalexin were administered in DSU. The left arm was then prepped with Chloraprep and draped in a standard fashion with stockinette and extremity drape. A timeout to confirm correct identity, side and site, procedure, allergies, anesthesia, and medical concerns was performed. The surgical site was marked in the volar wrist creases in line with the radial border of the fourth ray. This area was anesthetized with approximately 10cc of 1% Lidocaine with Epinephrine, buffered with Sodium Bicarbonate. The limb was then exsanguinated with an Esmarch. The skin was incised with a 15 blade, approximately 1cm. The skin only was cut and the deeper tissue was dissected bluntly with a tenotomy scissor, avoiding passing nerve and venous structures. The fascia was penetrated and opened bluntly. A two-prong skin hook was placed under this proximal fascial edge. A series of hamate finders were used to identify and dilate the carpal tunnel. Synovial elevator was used to free synovial attachments to the underside of the transverse carpal ligament. My thumb was kept in the palm to karen the distal extent of the carpal tunnel and correctly position the hand. The Microaire endoscope was inserted without difficulty and without resistance. Excellent visualization showed horizontally running fibers of the transverse carpal ligament (TCL). The distal extent of the TCL was visualized and the end of the scope palpated with the thumb. The blade was elevated and withdrawn from distal to proximal. The TCL was split into two flaps. The endoscope was reinserted to confirm complete release and any remnant ligament was incised. The scope was withdrawn and the proximal aspect of the carpal tunnel was grossly inspected and appeared release with the median nerve visible. The antebrachial fascia at the level of the wrist was then freed from the overlying skin and then the underlying median nerve with blunt dissection. This was transected longitudinally for about 3cm proximal to the wrist incision. The wound was then irrigated with easy flow of irrigant distally and proximally. The incision was closed with a single 4-0 Nylon suture. The wound was dressed with Xeroform, Gauze, Kerlix and Jaswinder. The tourniquet was deflated with the initial dressing and held with some pressure. Blood flow returned easily to all digits with capillary refill less than 2 seconds. The patient tolerated the procedure well and was returned to the Same Day Surgery area in a stable condition suffering no known complication. Date of Procedure: 02/28/25
== END 2025-02-28 13:12 | disposition home or self-care (01) ==
LOC: SUR 10:53
PROVIDERS: PCP Nurse Practitioner Family; Visit Provider Student in an Organized Health Care Education/Training Program
PROC: 01N54ZZ Release Median Nerve, Percutaneous Endoscopic Approach (ICD-10-PCS; CPT 29848; principal; 2025-02-28 13:30)
DX: G56.02 Carpal tunnel syndrome, left upper limb (principal)
CPT/HCPCS: 29848; J2004

== ENCOUNTER → 2025-03-08 00:07 | Outpatient (CLI) | payer MEDICARE, BC, SELFPAY ==
--- NOTE | 2025-03-08 | DI.US_ITS ---
Exam(s) US PELVIS TRANSVAGINAL EXAM: US PELVIS TRANSVAGINAL CLINICAL HISTORY: ABNL UROGENITAL DISCHARGE, R39.89 TECHNIQUE: Transabdominal and transvaginal imaging was performed using standard protocol. COMPARISON: CT ABD PELVIS WITH CONTRAST from 08/08/[address] LOWER EXTREMITY LT WO from 09/05/2020 FINDINGS: UTERUS: Anteverted. 5.3 x 2.5 x 3.2 cm Endometrium: There is fluid within the endometrial cavity measuring 6 mm in maximal thickness. No endometrial thickening is visible. Myometrium: No evidence of fibroids. Cervix: Complex fluid is also noted within the cervix. OVARIES: Right: Cyst or mass: 1 centimeter simple cyst. Left: Left ovary was not visualized. DOPPLER: Color: There are prominent left-sided pelvic veins. This was present on prior CT from 2014. CUL-DE-SAC: Free fluid: None. IMPRESSION: 1. Abnormal free fluid within the endometrial canal as well as in the cervix. No definite endometrial thickening. 2. Left ovary was not visualized. DATA REPOSITORY:
== END ==
LOC: DI 00:07
PROVIDERS: PCP Nurse Practitioner Family; Visit Provider Nurse Practitioner Family
DX: R39.89 Other symptoms and signs involving the genitourinary system (principal)
CPT/HCPCS: 76830; 76856

== ENCOUNTER → 2025-03-10 09:29 | Outpatient (BNVA) | payer MEDICARE, BC, SELFPAY | PROVIDERS: PCP Nurse Practitioner Family; Referring Provider Nurse Practitioner Family; Visit Provider Physician Assistant | DX: Z47.89 Encounter for other orthopedic aftercare (principal); G56.02 Carpal tunnel syndrome, left upper limb | CPT/HCPCS: 99024 ==